=== PATIENT | male | born 1940 | race Caucasian/White ===

== ENCOUNTER 2017-07-03 08:04 | Emergency (ER) | payer BC, MEDICARE ==
--- NOTE | 2017-07-03 08:46 | XR ---
EXAMINATION TYPE: XR chest 2V DATE OF EXAM: 07/03/2017 HISTORY: Cough and congestion. REFERENCE: NONE. FINDINGS: The heart is upper limits of normal in size. The lungs are clear. Pleural spaces are clear. IMPRESSION: BORDERLINE CARDIOMEGALY.
--- NOTE | 2017-07-03 09:06 | ED ---
URI HPI - General Source: patient Mode of arrival: ambulatory Limitations: no limitations <Florian Conrad - Last Filed: 07/03/17 09:05> <Cady Deluca - Last Filed: 07/03/17 09:20> - General Chief Complaint: Upper Respiratory Infection Stated Complaint: Flu Time Seen by Provider: 07/03/17 08:16 - History of Present Illness Initial Comments: 77 year-old male patient presents to the emergency department today for evaluation of cough and chest congestion. Patient states that approximately one week ago he developed what he believed with influenza. He states that he had nasal congestion, cough, and fevers. He states that the fevers and nasal congestion have resolved however the cough has persisted. He states that his cough is worse at night making it difficult for him to sleep. He denies any sputum production. He denies any shortness of breath. He denies any current fevers. Patient denies any recent rash, chest pain, abdominal pain, nausea, vomiting, diarrhea, constipation, back pain, numbness, tingling, dizziness, weakness, hematuria, dysuria, urinary urgency, urinary frequency, headache, visual changes, or any other complaints. (Cady Deluca) - Related Data Previous Rx's Medication Instructions Recorded Guaifenesin/Pseudoephedrne HCl 1 each PO BID #10 tab.er.12h 07/03/17 [Mucinex D ER 1,200-120 mg Tab] Promethaz-Cod 6.25-10 mg/5 ml 5 ml PO HS PRN #25 ml 07/03/17 [Phenergan with Codeine] predniSONE 50 mg PO DAILY #5 tablet 07/03/17 Allergies Allergy/AdvReac Type Severity Reaction Status Date / Time No Known Allergies Allergy Verified 07/03/17 08:11 Review of Systems ROS Other: All systems not noted in ROS Statement are negative. <Florian Conrad - Last Filed: 07/03/17 09:05> ROS Other: All systems not noted in ROS Statement are negative. <Cady Deluca - Last Filed: 07/03/17 09:20> ROS Statement: Those systems with pertinent positive or pertinent negative responses have been documented in the HPI. Past Medical History Past Medical History: Hyperlipidemia, Hypertension History of Any Multi-Drug Resistant Organisms: None Reported Past Surgical History: Hernia Repair Past Psychological History: No Psychological Hx Reported Smoking Status: Former smoker Past Alcohol Use History: None Reported Past Drug Use History: None Reported <Florian Conrad - Last Filed: 07/03/17 09:05> General Exam Limitations: no limitations <Florian Conrad - Last Filed: 07/03/17 09:05> General appearance: alert, in no apparent distress, other (Physical well- developed, well-nourished adult male patient in no acute distress. Vital signs upon presentation were temperature 98.7F, pulse 74, respirations 20, blood pressure 152/84, pulse ox 96% on room air.) Eye exam: Present: normal appearance, PERRL, EOMI. Absent: scleral icterus, conjunctival injection, periorbital swelling ENT exam: Present: normal exam, normal oropharynx, mucous membranes moist, TM's normal bilaterally Neck exam: Present: normal inspection. Absent: tenderness, meningismus, lymphadenopathy Respiratory exam: Present: normal lung sounds bilaterally, other (Even nonlabored respirations noted.). Absent: respiratory distress, wheezes, rales, rhonchi, stridor, accessory muscle use Cardiovascular Exam: Present: regular rate, normal rhythm, normal heart sounds. Absent: systolic murmur, diastolic murmur, rubs, gallop, clicks GI/Abdominal exam: Present: soft, normal bowel sounds. Absent: distended, tenderness, guarding, rebound, rigid Neurological exam: Present: alert, oriented X3, CN II-XII intact Psychiatric exam: Present: normal affect, normal mood Skin exam: Present: warm, dry, intact, normal color. Absent: rash <Cady Deluca M - Last Filed: 07/03/17 09:20> Course <Florian Conrad - Last Filed: 07/03/17 09:05> <Cady Deluca M - Last Filed: 07/03/17 09:20> Vital Signs 07/03/17 08:09 Temperature 98.7 F Pulse Rate 74 Respiratory 20 Rate Blood Pressure 152/84 O2 Sat by Pulse 96 Oximetry - Reevaluation(s) Reevaluation #1: 07/03/17 09:05 I did personally do a [id number] evaluation of this patient and did discuss the findings with him. His lung sounds are clear cardiac evaluation was unremarkable. I did review his x-ray which shows no evidence of acute infiltrate. Patient has had a persistent cough likely a viral bronchitis. I do agree with the assessment and plan. ([place]) Medical Decision Making <Florian Conrad - Last Filed: 07/03/17 09:05> - Radiology Data Radiology results: report reviewed, image reviewed <Cady Deluca - Last Filed: 07/03/17 09:20> - Medical Decision Making 77 year-old male patient presented to the emergency department today for complaints of cough and congestion. Physical examination is unremarkable. Lungs are clear to auscultation with good air movement. Patient denies any shortness of breath. His respirations are even and unlabored. He is able to speak full sentences without difficulty. Chest x-ray was obtained and did showed no acute cardiopulmonary process, however did reveal borderline cardiomegaly. There is no evidence of pneumonia. His symptoms are consistent with an acute viral bronchitis. Patient will be discharged home with a prescription for prednisone. He'll be given up her prescription for Mucinex and Phenergan with codeine as well. He is instructed to use a cough medication at nighttime to help him sleep. He is instructed to follow-up with his primary care physician for recheck in 1-2 days. He is instructed to return here immediately for any new, worsening, or concerning symptoms. He verbalizes understanding and agrees with this plan. (Cady Deluca) - Radiology Data Two-view x-ray of the chest shows a heart is upper limits of normal in size. The lungs are clear. Pleural spaces are clear. Impression by Dr. Henry shows borderline cardiomegaly. (Cady Deluca) Disposition <Florian Conrad - Last Filed: 07/03/17 09:05> Time of Disposition: :13 <Cady Deluca - Last Filed: 07/03/17 09:20> Clinical Impression: Acute bronchitis Disposition: HOME SELF-CARE Condition: Good Instructions: Acute Bronchitis (ED) Additional Instructions: Take medications as directed. Follow-up with your primary care physician for recheck in 1-2 days. Return here immediately for any new, worsening, or concerning symptoms. Prescriptions: Guaifenesin/Pseudoephedrne HCl [Mucinex D ER 1,200-120 mg Tab] 1 each PO BID # 10 tab.er.12h predniSONE 50 mg PO DAILY #5 tablet Promethaz-Cod 6.25-10 mg/5 ml [Phenergan with Codeine] 5 ml PO HS PRN #25 ml PRN Reason: Cough Referrals: Nguyễn Gray DO [Primary Care Provider] - 1-2 days
[2017-07-03 09:27] VITALS: BP 136/72; PULSE 82; RESP 18; TEMP 98.5
== END 2017-07-03 09:25 | disposition home or self-care (01) ==
LOC: EC 08:04
DX: J20.9 Acute bronchitis, unspecified (principal); Z87.891 Personal history of nicotine dependence
CPT/HCPCS: 71046; 99283

== ENCOUNTER 2018-06-12 09:02 | Emergency (ER) | payer MEDICARE ==
[2018-06-12 09:23] VITALS: BP 159/85; PULSE 80; RESP 18; TEMP 97.9
--- NOTE | 2018-06-12 10:03 | ED ---
General Adult HPI - General Chief complaint: Skin/Abscess/Foreign Body Stated complaint: CYST ON BACK Time Seen by Provider: 06/12/18 09:30 Source: patient, RN notes reviewed, old records reviewed Mode of arrival: ambulatory Limitations: no limitations - History of Present Illness Initial comments: 78-year-old male presents for reevaluation of abscess to the middle of his back. Patient has had symptoms of erythema, swelling, and drainage for the past several weeks, he did have this abscess drained at an outpatient surgical Center approximately one week ago. He has completed a course of antibiotics. He has persistent pain and swelling with some minimal drainage in this area. He states he previously had excision of sebaceous cyst which was infected. He states this was not excised as well as I&D. Denies fever or chills, denies systemic symptoms. - Related Data Previous Rx's Medication Instructions Recorded Guaifenesin/Pseudoephedrne HCl 1 each PO BID #10 tab.er.12h 07/03/17 [Mucinex D ER 1,200-120 mg Tab] Promethaz-Cod 6.25-10 mg/5 ml 5 ml PO HS PRN #25 ml 07/03/17 [Phenergan with Codeine] predniSONE 50 mg PO DAILY #5 tablet 07/03/17 Cephalexin [Keflex] 500 mg PO Q8HR #30 cap 06/12/18 Sulfamethox-Tmp 800-160Mg [Bactrim 1 tab PO Q12HR #28 tab 06/12/18 DS 800-160 mg] Allergies Allergy/AdvReac Type Severity Reaction Status Date / Time No Known Allergies Allergy Verified 06/12/18 09:19 Review of Systems ROS Statement: Those systems with pertinent positive or pertinent negative responses have been documented in the HPI. ROS Other: All systems not noted in ROS Statement are negative. Past Medical History Past Medical History: Hyperlipidemia, Hypertension History of Any Multi-Drug Resistant Organisms: None Reported Past Surgical History: Hernia Repair Past Psychological History: No Psychological Hx Reported Smoking Status: Former smoker Past Alcohol Use History: Occasional Past Drug Use History: None Reported General Exam Limitations: no limitations General appearance: alert, in no apparent distress Head exam: Present: atraumatic, normocephalic Eye exam: Present: normal appearance, PERRL ENT exam: Present: normal exam Neck exam: Present: normal inspection. Absent: tenderness, meningismus Respiratory exam: Present: normal lung sounds bilaterally. Absent: respiratory distress, wheezes GI/Abdominal exam: Present: soft. Absent: distended, tenderness Extremities exam: Present: normal inspection. Absent: normal capillary refill, pedal edema Back exam: Present: other (70 x 3 cm area of cellulitis with minimal central fluctuance consistent with abscess. This is freely draining at the incision site ) Neurological exam: Present: alert, oriented X3 Course Vital Signs 06/12/18 09:20 Temperature 97.9 F Pulse Rate 80 Respiratory 18 Rate Blood Pressure 159/85 O2 Sat by Pulse 97 Oximetry Medical Decision Making - Medical Decision Making 78-year-old male with abscess to his mid back. This was drained by general surgery approximately one week ago. It is continuing to drain, there is some surrounding cellulitis and purulent drainage. Patient will be restarted on antibiotics. Patient will follow-up with dermatology as he has previously required excision of sebaceous cyst. This is likely infected sebaceous cyst. Disposition Clinical Impression: Abscess Disposition: HOME SELF-CARE Condition: Good Instructions: Abscess (ED) Prescriptions: Cephalexin [Keflex] 500 mg PO Q8HR #30 cap Sulfamethox-Tmp 800-160Mg [Bactrim DS 800-160 mg] 1 tab PO Q12HR #28 tab Is patient prescribed a controlled substance at d/c from ED?: No Referrals: Nguyễn Gray DO [Primary Care Provider] - 1-2 days Jake Leonard MD [STAFF PHYSICIAN] - 1-2 days Time of Disposition: 10:02
== END 2018-06-12 10:34 | disposition home or self-care (01) ==
LOC: EC 09:02
DX: L02.212 Cutaneous abscess of back [any part, except buttock and flank] (principal); Z87.891 Personal history of nicotine dependence
CPT/HCPCS: 99283

== ENCOUNTER 2021-05-24 04:23 | Inpatient (IN) | payer MEDICARE ==
--- NOTE | 2021-05-24 04:41 | ED ---
Chest Pain HPI - General Chief Complaint: Chest Pain Stated Complaint: Chest Pain Time Seen by Provider: 05/24/21 04:38 Source: patient, family, RN notes reviewed, old records reviewed Mode of arrival: ambulatory Limitations: no limitations - History of Present Illness MD Complaint: chest pain - Related Data Previous Rx's Medication Instructions Recorded Guaifenesin/Pseudoephedrne HCl 1 each PO BID #10 tab.er.12h 07/03/17 [Mucinex D ER 1,200-120 mg Tab] Promethaz-Cod 6.25-10 mg/5 ml 5 ml PO HS PRN #25 ml 07/03/17 [Phenergan with Codeine] predniSONE 50 mg PO DAILY #5 tablet 07/03/17 Cephalexin [Keflex] 500 mg PO Q8HR #30 cap 06/12/18 Sulfamethox-Tmp 800-160Mg [Bactrim 1 tab PO Q12HR #28 tab 06/12/18 DS 800-160 mg] Allergies Allergy/AdvReac Type Severity Reaction Status Date / Time Sulfa (Sulfonamide Allergy Rash/Hives Verified 05/24/21 04:29 Antibiotics) Review of Systems ROS Statement: Those systems with pertinent positive or pertinent negative responses have been documented in the HPI. ROS Other: All systems not noted in ROS Statement are negative. EKG Findings - EKG Comments: EKG Findings:: EKG shows atrial fibrillation with RVR 125 QRS 96 QTc 461 Past Medical History Past Medical History: Hyperlipidemia, Hypertension History of Any Multi-Drug Resistant Organisms: None Reported Past Surgical History: Hernia Repair Past Psychological History: No Psychological Hx Reported Smoking Status: Never smoker Past Alcohol Use History: Occasional Past Drug Use History: None Reported General Exam Limitations: no limitations General appearance: alert, in no apparent distress, anxious Head exam: Present: atraumatic, normocephalic, normal inspection Eye exam: Present: normal appearance, PERRL, EOMI. Absent: scleral icterus, conjunctival injection, periorbital swelling ENT exam: Present: normal exam, mucous membranes moist Neck exam: Present: normal inspection. Absent: tenderness, meningismus, lymphadenopathy Respiratory exam: Present: normal lung sounds bilaterally. Absent: respiratory distress, wheezes, rales, rhonchi, stridor Cardiovascular Exam: Present: tachycardia, irregular rhythm, normal heart sounds. Absent: systolic murmur, diastolic murmur, rubs, gallop, clicks GI/Abdominal exam: Present: soft, normal bowel sounds. Absent: distended, tenderness, guarding, rebound, rigid Extremities exam: Present: normal inspection, full ROM, normal capillary refill. Absent: tenderness, pedal edema, joint swelling, calf tenderness Back exam: Present: normal inspection Neurological exam: Present: alert, oriented X3, CN II-XII intact Psychiatric exam: Present: normal affect, normal mood Skin exam: Present: warm, dry, intact, normal color. Absent: rash Course Vital Signs 05/24/21 04:24 Temperature 97.9 F Pulse Rate 111 H Respiratory 20 Rate Blood Pressure 136/99 O2 Sat by Pulse 98 Oximetry Critical Care Time Critical Care Time: Yes Total Critical Care Time: 31 Disposition Clinical Impression: Atypical chest pain, Chest pain, Atrial fibrillation with RVR, New onset atrial fibrillation Disposition: ADMITTED IP TO THIS HOSP Condition: Fair Is patient prescribed a controlled substance at d/c from ED?: No Referrals: Nguyễn Gray DO [Primary Care Provider] - 1-2 days
[2021-05-24] MEDS ORDERED: DILTIAZEM DRIP BOLUS FROM BAG 1 MG SOLN IV ONE (04:48)
[2021-05-24] MEDS ORDERED: DILTIAZEM 125 MG in SODIUM CHLORIDE 0.9% 100 ML IV SCH (05:00)
[2021-05-24] MEDS ORDERED: MORPHINE SULFATE 4 MG/ML SYRINGE IVP PRN (05:23)
[2021-05-24] MEDS ORDERED: MORPHINE SULFATE 4 MG/ML SYRINGE IVP STA (05:23)
[2021-05-24 05:27] LABS: Basophils % (A) 0 %; Eosinophils # (A) 0.3 k/uL (0-0.7); Eosinophils % (A) 3 %; HCT 45.9 % (39.0-53.0); HGB 15.8 gm/dL (13.0-17.5); Lymphocytes # (A) 1.5 k/uL (1.0-4.8); Lymphocytes % (A) 15 %; MCH 32.4 pg (25.0-35.0); MCHC 34.4 g/dL (31.0-37.0); MCV 94.3 fL (80.0-100.0); Mean Platelet Volume 8.3; Monocytes # (A) 0.8 k/uL (0-1.0); Monocytes % (A) 7 %; Neutrophils # (A) 7.7 k/uL (1.3-7.7); Neutrophils % (A) 74 %; Platelet Count 250 k/uL (150-450); RBC 4.87 m/uL (4.30-5.90); WBC 10.5 k/uL (3.8-10.6)
[2021-05-24] MEDS ORDERED: NALOXONE 0.4 MG/ML 1 ML VIAL IV PRN (05:33)
[2021-05-24 05:38] LABS: Partial Thromboplastin Time 22.1 sec (22.0-30.0); Prothrombin Time 10.6 sec (9.0-12.0)
[2021-05-24 05:49] LABS: ALT 22 U/L (4-49); AST 26 U/L (17-59); African American GFR (CKD) >90 (>60 ml/min/1.73 sqM); Albumin 3.8 g/dL (3.5-5.0); Alkaline Phosphatase 54 U/L (38-126); Anion Gap 10 mmol/L; Blood Urea Nitrogen 32 mg/dL (9-20); Calcium 9.7 mg/dL (8.4-10.2); Carbon Dioxide 20 mmol/L (22-30); Chloride 106 mmol/L (98-107); Glucose 285 mg/dL (74-99); Lipase 540 U/L (23-300); Magnesium 1.8 mg/dL (1.6-2.3); Non-African American GFR(CKD) 86 (>60 ml/min/1.73 sqM); Sodium 136 mmol/L (137-145); Total Bilirubin 0.8 mg/dL (0.2-1.3); Total Protein 6.8 g/dL (6.3-8.2)
--- NOTE | 2021-05-24 06:01 | XR ---
EXAMINATION TYPE: XR chest 2V DATE OF EXAM: 05/24/2021 COMPARISON: 07/03/2017 HISTORY: Chest pain TECHNIQUE: FINDINGS: There is no heart failure nor confluent pneumonic infiltrate. Heart is borderline enlarged. There are chest leads. There are no hilar masses. Costophrenic angles are fairly clear. Bony thorax is intact. IMPRESSION: No active cardiopulmonary disease. No change.
[2021-05-24] MEDS: SODIUM CHLORIDE 0.9% 1,000 ML IV SCH ×3 (08:55→20:59)
--- NOTE | 2021-05-24 11:42 | P.HPIM ---
History of Present Illness Patient is an 81-year-old male came in with the mild to moderate the chest pressure like sensation which started yesterday and today morning as well he took Tums which didn't help him because of which he came to ER and in ER. Patient is found to have atrial fibrillation with rapid ventricular rate patient doesn't have any fever chills is not septic is not dehydrated patient was started on Cardizem converted to sinus rhythm shortly after that cards was discontinued patient the will be started on metoprolol 25 twice a day. Echo cardiac exam is being obtained for cardiology will evaluate the patient. REVIEW OF SYSTEMS: CONSTITUTIONAL: No fever, no malaise, no fatigue. HEENT: No recent visual problems or hearing problems. Denied any sore throat. CARDIOVASCULAR: No orthopnea, PND, no palpitations, no syncope. PULMONARY: No shortness of breath, no cough, no hemoptysis. GASTROINTESTINAL: No diarrhea, no nausea, no vomiting, no abdominal pain. NEUROLOGICAL: No headaches, no weakness, no numbness. HEMATOLOGICAL: Denies any bleeding or petechiae. GENITOURINARY: Denies any burning micturition, frequency, or urgency. MUSCULOSKELETAL/RHEUMATOLOGICAL: Denies any joint pain, swelling, or any muscle pain. ENDOCRINE: Denies any polyuria or polydipsia. The rest of the 14-point review of systems is negative. PHYSICAL EXAMINATION: GENERAL: The patient is alert and oriented x3, not in any acute distress. Well developed, well nourished. HEENT: Pupils are round and equally reacting to light. EOMI. No scleral icterus. No conjunctival pallor. Normocephalic, atraumatic. No pharyngeal erythema. No thyromegaly. CARDIOVASCULAR: S1 and S2 present. No murmurs, rubs, or gallops. PULMONARY: Chest is clear to auscultation, no wheezing or crackles. ABDOMEN: Soft, nontender, nondistended, normoactive bowel sounds. No palpable organomegaly. MUSCULOSKELETAL: No joint swelling or deformity. EXTREMITIES: No cyanosis, clubbing, or pedal edema. NEUROLOGICAL: Gross neurological examination did not reveal any focal deficits. SKIN: No rashes. Assessment and plan -Atrial fibrillation with rapid unclear rate: Presently converted to sinus rhythm patient probably has paroxysmal A. fib. Cardiology will evaluate the patient patient will be started on beta eva 25 mg twice a day patient was started on Eliquis will verify his insurance coverage. If cardiology clears him patient will be discharged later today patient wanted to go home today. Echocardiogram was ordered -Type 2 diabetes mellitus uncontrolled elevated blood sugars I do not have enough time to titrate his medications are leave that decision to the primary care physician -Hypertension: Patient will be switched to losartan 50 mg daily patient blood pressure is well controlled at this time --Hyperlipidemia: on statin . If patient will be discharged today if cleared by cardiology Past Medical History Past Medical History: Hyperlipidemia, Hypertension History of Any Multi-Drug Resistant Organisms: None Reported Past Surgical History: Hernia Repair Past Anesthesia/Blood Transfusion Reactions: No Reported Reaction Past Psychological History: No Psychological Hx Reported Smoking Status: Former smoker Past Alcohol Use History: Occasional Past Drug Use History: None Reported Medications and Allergies Home Medications Medication Instructions Recorded Confirmed Type Apixaban [Eliquis] 5 mg PO BID #60 tab 05/24/21 Rx Atorvastatin Calcium [Lipitor] 40 mg PO DAILY 05/24/21 05/24/21 History Cholecalciferol [Vitamin D3 (25 25 mcg PO DAILY 05/24/21 05/24/21 History Mcg = 1000 Iu)] Losartan [Cozaar] 50 mg PO DAILY #30 tab 05/24/21 Rx Metoprolol Tartrate [Lopressor] 25 mg PO BID #60 tab 05/24/21 Rx metFORMIN HCL ER [Glucophage XR] 500 mg PO DAILY 05/24/21 05/24/21 History Allergies Allergy/AdvReac Type Severity Reaction Status Date / Time Sulfa (Sulfonamide Allergy Rash/Hives Verified 05/24/21 09:34 Antibiotics) Physical Exam Vitals: Vital Signs Temp Pulse Pulse Resp BP BP Pulse Ox 05/24/21 11:02 97.6 F 90 16 156/76 95 05/24/21 08:00 80 16 123/70 95 05/24/21 06:21 75 16 123/70 95 05/24/21 04:24 97.9 F 111 H 20 136/99 98 Intake and Output 05/23/21 05/24/21 05/24/21 22:59 06:59 14:59 Intake Total 8.083 Balance 8.083 Intake: Intake, IV Titration 8.083 Amount Diltiazem 125 mg In 8.083 Sodium Chloride 0.9% 100 ml @ 5 MG/HR 5 mls/hr IV .Q24H PENDING SALE TO [facility] Rx#:[id number] Other: Weight 102.058 kg 102.058 kg Results CBC & Chem 7: 05/24/21 05:04 05/24/21 05:04 Labs: Abnormal Lab Results - Last 24 Hours (Table) 05/24/21 Range/Units 05:04 Sodium 136 L (137-145) mmol/L Carbon Dioxide 20 L (22-30) mmol/L BUN 32 H (9-20) mg/dL Glucose 285 H (74-99) mg/dL Lipase 540 H (23-300) U/L
--- NOTE | 2021-05-24 11:43 | P.DS ---
Providers Date of admission: 05/24/21 05:33 Attending physician: Lorena Casey Consults: 05/24/21 05:33 Consult Physician Routine Consulting Provider: David Fleming Consult Reason/Comments: afib Do you want consulting provider notified?: Yes Primary care physician: Nguyễn Gray [facility] Course: Please refer to [facility] for further details Patient Condition at Discharge: Fair Plan - Discharge Summary Discharge Rx Participant: Yes New Discharge Prescriptions: New Apixaban [Eliquis] 5 mg PO BID #60 tab Metoprolol Tartrate [Lopressor] 25 mg PO BID #60 tab Losartan [Cozaar] 50 mg PO DAILY #30 tab Discontinued amLODIPine BESYLATE/BENAZEPRIL [Lotrel 5-40 MG] 1 cap PO DAILY No Action metFORMIN HCL ER [Glucophage XR] 500 mg PO DAILY Atorvastatin Calcium [Lipitor] 40 mg PO DAILY Cholecalciferol [Vitamin D3 (25 Mcg = 1000 Iu)] 25 mcg PO DAILY Discharge Medication List Apixaban [Eliquis] 5 mg PO BID #60 tab 05/24/21 [Rx] Atorvastatin Calcium [Lipitor] 40 mg PO DAILY 05/24/21 [History] Cholecalciferol [Vitamin D3 (25 Mcg = 1000 Iu)] 25 mcg PO DAILY 05/24/21 [History] Losartan [Cozaar] 50 mg PO DAILY #30 tab 05/24/21 [Rx] Metoprolol Tartrate [Lopressor] 25 mg PO BID #60 tab 05/24/21 [Rx] metFORMIN HCL ER [Glucophage XR] 500 mg PO DAILY 05/24/21 [History] Follow up Appointment(s)/Referral(s): Nguyễn Gray DO [Primary Care Provider] - 3 Days Discharge Disposition: HOME SELF-CARE
[2021-05-24] MEDS ORDERED: LOSARTAN 25 MG TAB PO STA (12:46)
[2021-05-24] MEDS: METOPROLOL TARTRATE 25 MG TAB PO SCH ×2 (13:12→20:57)
[2021-05-24] MEDS: LOSARTAN 50 MG TAB PO SCH (13:13)
--- NOTE | 2021-05-24 14:45 | CONS ---
CONSULTATION CHIEF COMPLAINT: Chest pain. Michael is an 81-year-old gentleman with history of qzc-hqahrqa-swegckuvy diabetes, hypertension and dyslipidemia who presented to [facility] with episodes of chest discomfort for the last two days. He describes it as a precordial chest pressure that radiated to his back. He was found to be in atrial fibrillation with poorly controlled ventricular rate with a heart rate of 130 beats per minute and subsequently converted to sinus rhythm on intravenous Cardizem. At the time of my evaluation, he is [id number], hemodynamically stable and in no apparent distress. He has had one set of troponin that is negative. Coronavirus is negative. EKG showed atrial fibrillation with nonspecific ST-T wave changes. I do not have a post- conversion EKG. Given the paroxysmal atrial fibrillation, patient will need and would benefit from long-term anticoagulation. I am concerned with his chest discomfort. I want to get at least another troponin and rule him out for myocardial infarction, and obtain a 2D echo to assess his LV function and wall motion. If LV function is good, wall motion is normal, he does not have further episodes of chest pain, would be able to discharge him home tomorrow and arrange for an outpatient stress test on him. If he has further episodes of chest discomfort, I will consider cardiac catheterization. PAST MEDICAL HISTORY: Significant for nzu-dgjomax-leurbarzu diabetes and hypertension. MEDICATIONS: Medications include metformin, Lipitor, Lopressor, Cozaar and Eliquis. ALLERGIC: SULFA. FAMILY HISTORY: Negative for premature coronary artery disease. SOCIAL HISTORY: Negative for current smoking, EtOH abuse or drug abuse. REVIEW OF SYSTEMS: HEENT is unremarkable. CARDIAC: As described above. RESPIRATORY: Negative. GI: Negative. GENITOURINARY: Negative. ALLERGY/IMMUNOLOGY: Negative. SKIN: Negative. MUSCULOSKELETAL: Negative. ENDOCRINE: Negative. DERMATOLOGY: Negative. CONSTITUTIONAL: Negative. ONCOLOGICAL: Negative. CASH PERSON: Negative. Rest of the system review is not relevant. PHYSICAL EXAMINATION: Patient is comfortable at rest. Vital signs are stable. There is no jugular venous distention. Carotid upstroke is normal. There is no bruit. Chest exam reveals good air entry bilaterally. Heart exam reveals first and second heart sounds. No gallop. No murmur. No rub. Abdomen is soft, non-tender. Examination of extremities did not reveal any edema. Peripheral pulses are felt. CASH PERSON exam did not reveal focal neurological deficits. EKG is as described above. Labs have been reviewed. ASSESSMENT: 1. Paroxysmal atrial fibrillation. 2. Precordial chest pain. 3. Hypertension. 4. Oun-lnqrbkx-kvffhayof diabetes mellitus. PLAN: I will check a D-dimer, another set of troponin and echocardiogram, start him on beta blockers and Eliquis. Hopefully home tomorrow. MMODL / IJN: [id number] /
[2021-05-24] MEDS: APIXABAN 5 MG TAB PO SCH (20:57)
[2021-05-25] MEDS: SODIUM CHLORIDE 0.9% 1,000 ML IV SCH (05:10)
[2021-05-25] MEDS: APIXABAN 5 MG TAB PO SCH ×2 (08:20→11:32)
[2021-05-25] MEDS: METOPROLOL TARTRATE 25 MG TAB PO SCH ×2 (08:21→11:32)
[2021-05-25] MEDS: LOSARTAN 50 MG TAB PO SCH (08:21)
[2021-05-25 08:23] VITALS: BP 120/61; PULSE 80; RESP 16; TEMP 98
[2021-05-25 08:38] LABS: Basophils # (A) 0.1 k/uL (0-0.2); Basophils % (A) 1 %; Eosinophils # (A) 0.2 k/uL (0-0.7); Eosinophils % (A) 3 %; HGB 14.6 gm/dL (13.0-17.5); Lymphocytes # (A) 1.6 k/uL (1.0-4.8); Lymphocytes % (A) 21 %; MCH 32.5 pg (25.0-35.0); MCHC 33.9 g/dL (31.0-37.0); MCV 95.9 fL (80.0-100.0); Monocytes # (A) 0.6 k/uL (0-1.0); Monocytes % (A) 9 %; Neutrophils # (A) 4.7 k/uL (1.3-7.7); Neutrophils % (A) 64 %; Platelet Count 240 k/uL (150-450); RBC 4.48 m/uL (4.30-5.90); WBC 7.3 k/uL (3.8-10.6)
[2021-05-25 08:53] LABS: ALT 19 U/L (4-49); AST 21 U/L (17-59); African American GFR (CKD) >90 (>60 ml/min/1.73 sqM); Albumin 3.8 g/dL (3.5-5.0); Alkaline Phosphatase 48 U/L (38-126); Anion Gap 8 mmol/L; Blood Urea Nitrogen 26 mg/dL (9-20); Calcium 9.2 mg/dL (8.4-10.2); Carbon Dioxide 25 mmol/L (22-30); Chloride 103 mmol/L (98-107); Glucose 288 mg/dL (74-99); Non-African American GFR(CKD) >90 (>60 ml/min/1.73 sqM); Sodium 136 mmol/L (137-145); Total Bilirubin 1.1 mg/dL (0.2-1.3); Total Protein 6.8 g/dL (6.3-8.2)
--- NOTE | 2021-05-25 11:00 | P.DS ---
Providers Date of admission: 05/24/21 05:33 Attending physician: Lorena Casey Consults: 05/24/21 05:33 Consult Physician Routine Consulting Provider: David Fleming Consult Reason/Comments: afib Do you want consulting provider notified?: Yes Primary care physician: Nguyễn Gray [facility] Course: Patient is an 81-year-old male came in with the mild to moderate the chest pressure like sensation which started yesterday and today morning as well he took Tums which didn't help him because of which he came to ER and in ER. Patient is found to have atrial fibrillation with rapid ventricular rate patient doesn't have any fever chills is not septic is not dehydrated patient was started on Cardizem converted to sinus rhythm shortly after that cards was discontinued patient the will be started on metoprolol 25 twice a day. Echo cardiac exam is being obtained for cardiology will evaluate the patient. 05/25/2021 Patient is clinically doing well cleared by cardiology patient is rate controlled at this time patient will be discharged on 25 mg twice a day of metoprolol along with the anticoagulation on Eliquis. Echocardiogram report is still pending. Patient clinically doesn't appear to be in heart failure. PHYSICAL EXAMINATION: GENERAL: The patient is alert and oriented x3, not in any acute distress. Well developed, well nourished. HEENT: Pupils are round and equally reacting to light. EOMI. No scleral icterus. No conjunctival pallor. Normocephalic, atraumatic. No pharyngeal erythema. No thyromegaly. CARDIOVASCULAR: S1 and S2 present. No murmurs, rubs, or gallops. PULMONARY: Chest is clear to auscultation, no wheezing or crackles. ABDOMEN: Soft, nontender, nondistended, normoactive bowel sounds. No palpable organomegaly. MUSCULOSKELETAL: No joint swelling or deformity. EXTREMITIES: No cyanosis, clubbing, or pedal edema. NEUROLOGICAL: Gross neurological examination did not reveal any focal deficits. SKIN: No rashes. Assessment and plan -Atrial fibrillation with rapid unclear rate: Presently converted to sinus rhythm patient probably has paroxysmal A. fib. Patient is on on beta eva 25 mg twice a day and Eliquis. -Type 2 diabetes mellitus uncontrolled elevated blood sugars I do not have enough time to titrate his medications are leave that decision to the primary care physician -Hypertension: Patient will be switched to losartan 50 mg daily patient blood pressure is well controlled at this time --Hyperlipidemia: on statin Patient Condition at Discharge: Fair Plan - Discharge Summary Discharge Rx Participant: Yes New Discharge Prescriptions: New Apixaban [Eliquis] 5 mg PO BID #60 tab Metoprolol Tartrate [Lopressor] 25 mg PO BID #60 tab Losartan [Cozaar] 50 mg PO DAILY #30 tab Discontinued amLODIPine BESYLATE/BENAZEPRIL [Lotrel 5-40 MG] 1 cap PO DAILY No Action metFORMIN HCL ER [Glucophage XR] 500 mg PO DAILY Atorvastatin Calcium [Lipitor] 40 mg PO DAILY Cholecalciferol [Vitamin D3 (25 Mcg = 1000 Iu)] 25 mcg PO DAILY Discharge Medication List Apixaban [Eliquis] 5 mg PO BID #60 tab 05/24/21 [Rx] Atorvastatin Calcium [Lipitor] 40 mg PO DAILY 05/24/21 [History] Cholecalciferol [Vitamin D3 (25 Mcg = 1000 Iu)] 25 mcg PO DAILY 05/24/21 [History] Losartan [Cozaar] 50 mg PO DAILY #30 tab 05/24/21 [Rx] Metoprolol Tartrate [Lopressor] 25 mg PO BID #60 tab 05/24/21 [Rx] metFORMIN HCL ER [Glucophage XR] 500 mg PO DAILY 05/24/21 [History] Follow up Appointment(s)/Referral(s): Nguyễn Gray DO [Primary Care Provider] - 3 Days Raf Boland MD [STAFF PHYSICIAN] - 1 Week Patient Instructions/Handouts: A-fib (Atrial Fibrillation) (DC) Discharge Disposition: HOME SELF-CARE
--- NOTE | 2021-05-25 11:55 | ECHOF ---
Referral Reason:A.Fib MEASUREMENTS -------- HEIGHT: 185.4 cm WEIGHT: 102.1 kg BP: 149/90 IVSd: 1.7 cm (0.6 - 1.1) LVIDd: 4.8 cm (3.9 - 5.3) LVPWd: 1.6 cm (0.6 - 1.1) IVSs: 2.5 cm LVIDs: 2.7 cm LVPWs: 1.8 cm LA Diam: 4.9 cm (2.7 - 3.8) MV E Rafat: 0.75 m/s MV DecT: 185 ms MV A Rafat: 0.88 m/s MV E/A Ratio: 0.85 FINDINGS -------- This was a technically difficult study with suboptimal views. The left ventricular size is normal. There is moderate concentric left ventricular hypertrophy. O verall left ventricular systolic function is normal with, an EF between 55 - 60 %. The RV was not well visualized. The left atrium is moderately dilated. The right atrium was not well visualized. 3.0mg of Lumason was utilized for enhancement of images Interatrial and interventricular septum intact. There is no evidence of aortic regurgitation. There is no evidence of aortic stenosis. No mitral regurgitation. Mild tricuspid regurgitation present. There is no evidence of pulmonary hypertension. The right v entricular systolic pressure, as measured by Doppler, is {RVSP}. There is no pulmonic regurgitation present. The aortic root size is normal. IVC Not well visulized. There is no pericardial effusion. CONCLUSIONS -------- 1. The left ventricular size is normal. 2. There is moderate concentric left ventricular hypertrophy. 3. Overall left ventricular systolic function is normal with, an EF between 55 - 60 %. 4. The left atrium is moderately dilated. 5. Mild tricuspid regurgitation present. SHELLFISH SORTER: Milana Vela RD
== END 2021-05-25 11:52 | disposition home or self-care (01) | DRG 310 ==
LOC: EC 04:23 → 3SCARD 05:33
PROVIDERS: ADMIT Hospitalist; ATTEND Hospitalist
DX: I48.0 Paroxysmal atrial fibrillation (principal); E11.65 Type 2 diabetes mellitus with hyperglycemia; Z20.822 Contact with and (suspected) exposure to COVID-19; E78.5 Hyperlipidemia, unspecified; I10 Essential (primary) hypertension; Z79.84 Long term (current) use of oral hypoglycemic drugs; Z79.899 Other long term (current) drug therapy; Z87.891 Personal history of nicotine dependence; Z87.19 Personal history of other diseases of the digestive system; Z98.890 Other specified postprocedural states; Z88.2 Allergy status to sulfonamides
CPT/HCPCS: 36415; 71046; 80053; 83690; 83735; 83880; 84484; 85025; 85379; 85610; 85730; 87635; 93005; 93306; 96374; 96375; 99291

== ENCOUNTER 2022-04-27 06:08 | Day surgery (SDC) | payer MEDICARE ==
[2022-04-24 09:24] VITALS: BMI 30.3
[~2022-04-27 06:08] MED LIST: ACETAMINOPHEN TAB 500 MG TAB PO PRN; HEPARIN SODIUM,PORCINE/PF 5,000 UNIT/0.5 ML SYRINGE SQ PRN; metroNIDAZOLE-NS PMX 500 MG in SALINE 1 100ML.BAG IVPB PRN
[2022-04-27] MEDS ORDERED: LACTATED RINGERS 1,000 ML IV ONE ×2 (06:54→08:39)
[2022-04-27] MEDS ORDERED: ONDANSETRON 4 MG/2 ML VIAL ONE (06:55)
[2022-04-27 07:13] LABS: Glucose,Whole Blood 267 mg/dL (70-110)
[2022-04-27] MEDS ORDERED: INSULIN ASPART (NovoLOG) 100 UNIT/ML VIAL SQ ONE (07:17)
[2022-04-27] MEDS ORDERED: DEXAMETHASONE SOD PHOSPHATE 4 MG/ML 1 ML VIAL IV ONE (07:29)
[2022-04-27] MEDS ORDERED: MIDAZOLAM 2 MG/2 ML VIAL IV PRN (07:29)
[2022-04-27] MEDS ORDERED: LACTATED RINGERS 1,000 ML IV SCH (07:29)
[2022-04-27] MEDS ORDERED: HYDROmorphone 0.5 MG/0.5 ML SYRINGE IVP PRN (07:29)
[2022-04-27] MEDS ORDERED: ONDANSETRON 4 MG/2 ML VIAL IVP ONE (07:29)
[2022-04-27] MEDS ORDERED: SUCCINYLCHOLINE CHLORIDE 200 MG/10 ML VIAL IV ONE (07:30)
[2022-04-27] MEDS ORDERED: fentaNYL (PF) 50 MCG/ML 2 ML AMP ONE (07:30)
[2022-04-27] MEDS ORDERED: PROPOFOL 10 MG/ML 20 ML VIAL IV ONE (07:30)
[2022-04-27] MEDS ORDERED: LIDOCAINE 2% INJ 20 MG/ML (2 ML VIAL) ONE (07:30)
[2022-04-27] MEDS ORDERED: MIDAZOLAM 2 MG/2 ML VIAL ONE (07:30)
[2022-04-27] MEDS ORDERED: BUPIVACAINE (PF) 0.25% 30 ML VIAL SQ ONE ×2 (07:51→08:02)
[2022-04-27] MEDS ORDERED: ACETAMINOPHEN TAB 325 MG TAB PO PRN (08:24)
[2022-04-27] MEDS ORDERED: NALOXONE 0.4 MG/ML 1 ML VIAL IV PRN (08:24)
[2022-04-27] MEDS ORDERED: traMADol 50 MG TAB PO PRN (08:24)
--- NOTE | 2022-04-27 08:27 | P.OP ---
Date of Procedure: 04/27/22 Procedure(s) Performed: PREOPERATIVE DIAGNOSIS: Lower back cyst POSTOPERATIVE DIAGNOSIS: Same PROCEDURE: Excision lower back cystic lesion SURGEON: Britney EBL: Minimal ANESTHESIA: General COMPLICATIONS: None OPERATIVE PROCEDURE: Patient was placed prone on the operating table after general anesthesia was achieved. The gluteal crease was prepped and draped in usual sterile fashion after the patient was placed in the prone jackknife position. The patient had a large cystic lesion in the lower midline just above and at the apex of the gluteal crease. There were no skin sinuses present. An elliptical incision was made overlying the cyst removing a portion of skin. Excision 7 x 3.5 cm. Saphenous tissues divided using electrocautery. Mass was fully excised at that time. No tracking was seen. Flaps were raised laterally beneath the skin surface. Subcutaneous tissues closed using 20 and 3-0 Vicryl sutures. Skin was then closed using a running 3-0 Monocryl suture. Marcaine solution plain was utilized as local anesthesia. Skin glue was used along the length of the skin closure. A sterile dressing was applied at that time. DISPOSITION: Stable to recovery room
[2022-04-27 08:34] VITALS: TEMP 97.9
[2022-04-27 08:53] LABS: Glucose,Whole Blood 275 mg/dL (70-110)
[2022-04-27 09:22] VITALS: RESP 15
[2022-04-27 09:34] VITALS: BP 128/72; PULSE 67
== END 2022-04-27 09:45 | disposition home or self-care (01) ==
LOC: OR 06:08
PROVIDERS: ATTEND Surgery
DX: L72.0 Epidermal cyst (principal); I10 Essential (primary) hypertension; E78.5 Hyperlipidemia, unspecified; Z88.2 Allergy status to sulfonamides; Z79.899 Other long term (current) drug therapy
CPT/HCPCS: 88304; 11406; J2250; J0330; J0690; J2405; J3010; J2704; J1644; J2001

== ENCOUNTER 2022-10-19 23:02 | Emergency (ER) | payer MEDICARE ==
[2022-10-19 23:28] VITALS: TEMP 97.2
--- NOTE | 2022-10-19 23:35 | ED ---
General Adult HPI - General Chief complaint: Urogenital Stated complaint: URINARY RETENTION Time Seen by Provider: 10/19/22 23:12 Source: patient Mode of arrival: EMS Limitations: no limitations - History of Present Illness Initial comments: Dictation was produced using [employer] dictation software. please excuse any grammatical, word or spelling errors. Chief Complaint: 82-year-old male presents emergency department for urinary retention History of Present Illness: Patient is an 82-year-old male presents emergency department for urinary retention. Patient had a cystoscopy with removal of polyps several days ago. He had his follow-up appointment to have his Wooten catheter removed after the procedure. Wooten catheter was removed. He was at home. He went to try to urinate however was unable to do so for the last 4-5 hours. Patient called EMS and is brought to the ER. The ROS documented in this emergency department record has been reviewed and confirmed by me. Those systems with pertinent positive or negative responses have been documented in the HPI. All other systems are other negative and/or noncontributory. - Related Data Home Medications Medication Instructions Recorded Confirmed Atorvastatin Calcium [Lipitor] 40 mg PO Q48H 05/24/21 04/27/22 Cinnamon Bark [Cinnamon] 2,000 mg PO QAM 04/24/22 04/27/22 Tetrahydrozoline 0.05% Ophth 1 drop BOTH EYES QAM 04/24/22 04/27/22 [Visine Eye Drops] Turmeric (Unknown Dose) 1 tab PO DAILY PRN 04/24/22 04/27/22 Allergies Allergy/AdvReac Type Severity Reaction Status Date / Time Sulfa (Sulfonamide Allergy Rash/Hives Verified 10/19/22 23:21 Antibiotics) Review of Systems ROS Statement: Those systems with pertinent positive or pertinent negative responses have been documented in the HPI. ROS Other: All systems not noted in ROS Statement are negative. Past Medical History Past Medical History: Diabetes Mellitus, Hyperlipidemia, Hypertension, Prostate Disorder Additional Past Medical History / Comment(s): No medications currently for BP or Diabetes. Bladder CA september/2022 History of Any Multi-Drug Resistant Organisms: None Reported Past Surgical History: Hernia Repair Additional Past Surgical History / Comment(s): Cysts removed from chest X2 and from back X3. Laser eye surgery. Past Anesthesia/Blood Transfusion Reactions: No Reported Reaction Past Psychological History: No Psychological Hx Reported Smoking Status: Former smoker Past Alcohol Use History: Daily Past Drug Use History: None Reported - Past Family History Brother(s) Family Medical History: Cancer Additional Family Medical History / Comment(s): Esophageal cancer. Mother Family Medical History: Cancer Additional Family Medical History / Comment(s): Breast cancer. General Exam - General Exam Comments Initial Comments: PHYSICAL EXAM: General Impression: Alert and oriented x3, not in acute distress HEENT: Normocephalic atraumatic, extra-ocular movements intact, pupils equal and reactive to light bilaterally, mucous membranes moist. Cardiovascular: Heart regular rate and rhythm Chest: Able to complete full sentences, no retractions, no tachypnea Abdomen: abdomen soft, non-tender,suprapubic fullness, non-distended, no organomegaly Musculoskeletal: Pulses present and equal in all extremities, no peripheral edema Motor: no focal deficits noted Neurological: CN II-XII grossly intact, no focal motor or sensory deficits noted Skin: Intact with no visualized rashes Psych: Normal affect and mood Limitations: no limitations Course Vital Signs 10/19/22 23:21 Temperature 97.2 F L Pulse Rate 72 Respiratory 16 Rate Blood Pressure 196/92 O2 Sat by Pulse 95 Oximetry - Reevaluation(s) Reevaluation #1: 10/19/22 23:34 Wooten catheter was placed by nurse with 700 mL of bloody urine removed. Patient reported significant resolution after Wooten catheter was placed. Medical Decision Making - Medical Decision Making Was pt. sent in by a medical professional or institution (, PA, SINGLE ENDING MACHINE OPERATOR, urgent care, hospital, or longterm...) When possible be specific @ -No Did you speak to anyone other than the patient for history (EMS, parent, family, police, friend...)? What history was obtained from this source @ -No Did you review nursing and triage notes (agree or disagree)? Why? @ -I reviewed and agree with nursing and triage notes Were old charts reviewed (outside hosp., previous admission, EMS record, old EKG, old radiological studies, urgent care reports/EKG's, longterm records)? Report findings @ -No old charts were reviewed Differential Diagnosis (chest pain, altered mental status, abdominal pain women, abdominal pain men, vaginal bleeding, musculoskeletal, weakness, fever, dyspnea, syncope, headache, dizziness, GI bleed, back pain, seizure, CVA, palpatations, mental health)? @ -not applicable EKG interpreted by me (3pts min.). @ -None done X-rays interpreted by me (1pt min.). @ -None done CT interpreted by me (1pt min.). @ -None done U/S interpreted by me (1pt. min.). @ -None done What testing was considered but not performed or refused? (CT, X-rays, U/S, labs)? Why? @ -None What meds were considered but not given or refused? Why? @ -None Did you discuss the management of the patient with other professionals (professionals i.e. DrShree, PA, SINGLE ENDING MACHINE OPERATOR, lab, RT, psych nurse, medical social worker, tile ditcher, teacher, appeals officer, pillowcase cutter)? Give summary @ -No Was smoking cessation discussed for >3mins.? @ -No Was critical care preformed (if so, how long)? @ -No Were there social determinants of health that impacted care today? How? (Homelessness, low income, unemployed, alcoholism, drug addiction, transportation, low edu. Level, literacy, decrease access to med. care, long term, rehab)? @ -No Was there de-escalation of care discussed even if they declined (Discuss DNR or withdrawal of care, Hospice)? DNR status @ -No What co-morbidities impacted this encounter? (DM, HTN, Smoking, COPD, CAD, Cancer, CVA, ARF, Chemo, Hep., AIDS, mental health diagnosis, sleep apnea, morbid obesity)? @ -None Was patient admitted / discharged? Hospital course, mention meds given and route, prescriptions, significant lab abnormalities, going to OR and other pertinent info. @ -82-year-old male presents emergency department for urinary retention. Wooten catheter was placed. 70 mL of urine was removed. Patient reports complete resolution of his symptoms. Patient discharged last to follow-up again with urology for further care. Undiagnosed new problem with uncertain prognosis? @ -No Drug Therapy requiring intensive monitoring for toxicity (Heparin, Nitro, Insulin, Cardizem)? @ -No Were any procedures done? @ -No Diagnosis/symptom? Acute, or Chronic, or Acute on Chronic? Uncomplicated (without systemic symptoms) or Complicated (systemic symptoms)? @ -1. Acute urinary retention Side effects of treatment? @ -No Exacerbation, Progression, or Severe Exacerbation? @ -No Poses a threat to life or bodily function? How? (Chest pain, [place], [place], pneumonia, PE, COPD, DKA, ARF, appy, cholecystitis, CVA, Diverticulitis, Homicidal, Suicidal, threat to staff... and all critical care pts) @ -yes Disposition Clinical Impression: Urinary retention Disposition: HOME SELF-CARE Condition: Good Instructions (If sedation given, give patient instructions): Urinary Retention in Men (ED) Is patient prescribed a controlled substance at d/c from ED?: No Referrals: Hima Pan MD [STAFF PHYSICIAN] - 1-2 days Time of Disposition: 23:29
[2022-10-20 00:16] VITALS: BP 160/87; PULSE 78; RESP 18
== END 2022-10-20 00:16 | disposition home or self-care (01) ==
LOC: EC 23:02
DX: R33.9 Retention of urine, unspecified (principal); E11.9 Type 2 diabetes mellitus without complications; E78.5 Hyperlipidemia, unspecified; I10 Essential (primary) hypertension; Z87.891 Personal history of nicotine dependence; Z88.2 Allergy status to sulfonamides; Z79.899 Other long term (current) drug therapy
CPT/HCPCS: 51702; 51798; 99284

== ENCOUNTER 2022-10-20 05:09 | Emergency (ER) | payer MEDICARE ==
--- NOTE | 2022-10-20 05:27 | ED ---
General Adult HPI - General Source: patient Mode of arrival: wheelchair <Ethan Brower - Last Filed: 10/20/22 08:02> <Doug Pham - Last Filed: 10/20/22 10:52> - General Chief complaint: Urogenital Stated complaint: cath issue Time Seen by Provider: 10/20/22 05:15 - History of Present Illness Initial comments: Dictation was produced using [employer] dictation software. please excuse any grammatical, word or spelling errors. Chief Complaint: 82-year-old male presents with foot catheter malfunction History of Present Illness: 82-year-old male who presents to the emergency department. Patient was seen and evaluated by me earlier this evening or urinary retention. Wooten catheter was placed and patient ended up being discharged. Patient states he went to bed when at around 4 AM he felt like his Wooten catheter was not draining. He also felt some suprapubic discomfort. Patient called EMS and he was brought back to the ER. The ROS documented in this emergency department record has been reviewed and confirmed by me. Those systems with pertinent positive or negative responses have been documented in the HPI. All other systems are other negative and/or noncontributory. (Ethan Brower) - Related Data Home Medications Medication Instructions Recorded Confirmed Atorvastatin Calcium [Lipitor] 40 mg PO Q48H 05/24/21 04/27/22 Cinnamon Bark [Cinnamon] 2,000 mg PO QAM 04/24/22 04/27/22 Tetrahydrozoline 0.05% Ophth 1 drop BOTH EYES QAM 04/24/22 04/27/22 [Visine Eye Drops] Turmeric (Unknown Dose) 1 tab PO DAILY PRN 04/24/22 04/27/22 Allergies Allergy/AdvReac Type Severity Reaction Status Date / Time Sulfa (Sulfonamide Allergy Rash/Hives Verified 10/19/22 23:21 Antibiotics) Review of Systems ROS Other: All systems not noted in ROS Statement are negative. <Ethan Brower - Last Filed: 10/20/22 08:02> ROS Other: All systems not noted in ROS Statement are negative. <Doug Pham - Last Filed: 10/20/22 10:52> ROS Statement: Those systems with pertinent positive or pertinent negative responses have been documented in the HPI. Past Medical History Past Medical History: Diabetes Mellitus, Hyperlipidemia, Hypertension, Prostate Disorder Additional Past Medical History / Comment(s): No medications currently for BP or Diabetes. Bladder CA september/2022 History of Any Multi-Drug Resistant Organisms: None Reported Past Surgical History: Hernia Repair Additional Past Surgical History / Comment(s): Cysts removed from chest X2 and from back X3. Laser eye surgery. Past Anesthesia/Blood Transfusion Reactions: No Reported Reaction Past Psychological History: No Psychological Hx Reported Smoking Status: Former smoker Past Alcohol Use History: Daily Past Drug Use History: None Reported - Past Family History Brother(s) Family Medical History: Cancer Additional Family Medical History / Comment(s): Esophageal cancer. Mother Family Medical History: Cancer Additional Family Medical History / Comment(s): Breast cancer. <Ethan Brower - Last Filed: 10/20/22 08:02> General Exam <Ethan Brower - Last Filed: 10/20/22 08:02> - General Exam Comments Initial Comments: PHYSICAL EXAM: General Impression: Alert and oriented x3, mild distress HEENT: Normocephalic atraumatic, extra-ocular movements intact, pupils equal and reactive to light bilaterally, mucous membranes moist. Cardiovascular: Heart regular rate and rhythm Chest: Able to complete full sentences, no retractions, no tachypnea Abdomen: abdomen soft, suprapubic fullness, non-distended, no organomegaly Musculoskeletal: Pulses present and equal in all extremities, no peripheral edema Motor: no focal deficits noted Neurological: CN II-XII grossly intact, no focal motor or sensory deficits noted Skin: Intact with no visualized rashes Psych: Normal affect and mood : Mild blood at the urethral meatus, no urine in Wooten bag (Ethan Brower) Course Vital Signs 10/20/22 10/20/22 05:10 06:21 Temperature 97.6 F 96.1 F L Pulse Rate 81 68 Respiratory 24 18 Rate Blood Pressure 176/96 146/67 O2 Sat by Pulse 97 94 L Oximetry Medical Decision Making <Ethan Brower - Last Filed: 10/20/22 08:02> <Doug Pham - Last Filed: 10/20/22 10:52> - Medical Decision Making Was pt. sent in by a medical professional or institution (RAPHAEL Banerjee, SR VICE PRESIDENT, urgent care, hospital, or skilled nursing...) When possible be specific @ -No Did you speak to anyone other than the patient for history (EMS, parent, family, police, friend...)? What history was obtained from this source @ -No Did you review nursing and triage notes (agree or disagree)? Why? @ -I reviewed and agree with nursing and triage notes Were old charts reviewed (outside hosp., previous admission, EMS record, old EK G, old radiological studies, urgent care reports/EKG's, skilled nursing records)? Report findings @ -No old charts were reviewed Differential Diagnosis (chest pain, altered mental status, abdominal pain women, abdominal pain men, vaginal bleeding, musculoskeletal, weakness, fever, dyspnea, syncope, headache, dizziness, GI bleed, back pain, seizure, CVA, palpatations, mental health)? @ -not applicable EKG interpreted by me (3pts min.). @ -None done X-rays interpreted by me (1pt min.). @ -None done CT interpreted by me (1pt min.). @ -None done U/S interpreted by me (1pt. min.). @ -None done What testing was considered but not performed or refused? (CT, X-rays, U/S, labs)? Why? @ -None What meds were considered but not given or refused? Why? @ -None Did you discuss the management of the patient with other professionals (professionals i.e. RAPHAEL Banerjee, SR VICE PRESIDENT, lab, RT, psych nurse, home health care social worker, residential interior designer, teacher, radio division officer, briefcase sewer)? Give summary @ -Case discussed with urologist, Dr. lewis requests that Wooten catheter be changed for a larger ideally 20-[place] Wooten catheter. Was smoking cessation discussed for >3mins.? @ -No Was critical care preformed (if so, how long)? @ -No Were there social determinants of health that impacted care today? How? (Homelessness, low income, unemployed, alcoholism, drug addiction, transportation, low edu. Level, literacy, decrease access to med. care, penitentiary, rehab)? @ -No Was there de-escalation of care discussed even if they declined (Discuss DNR or withdrawal of care, Hospice)? DNR status @ -No What co-morbidities impacted this encounter? (DM, HTN, Smoking, COPD, CAD, Cancer, CVA, ARF, Chemo, Hep., AIDS, mental health diagnosis, sleep apnea, morb id obesity)? @ -Urologic procedure Was patient admitted / discharged? Hospital course, mention meds given and route, prescriptions, significant lab abnormalities, going to OR and other pertinent info. @ -82-year-old male presents emergency Department with Wooten catheter malfunction. Patient is significant hematuria causing blood clots likely causing Wooten catheter malfunction. Wooten catheter was exchanged for a 20- [place]. Bladder irrigation continued. Undiagnosed new problem with uncertain prognosis? @ -No Drug Therapy requiring intensive monitoring for toxicity (Heparin, Nitro, Insulin, Cardizem)? @ -No Were any procedures done? @ -No Diagnosis/symptom? Acute, or Chronic, or Acute on Chronic? Uncomplicated (without systemic symptoms) or Complicated (systemic symptoms)? @ -1. Wooten catheter malfunction Side effects of treatment? @ -No Exacerbation, Progression, or Severe Exacerbation? @ -No Poses a threat to life or bodily function? How? (Chest pain, [place], [place], pneumonia, PE, COPD, DKA, ARF, appy, cholecystitis, CVA, Diverticulitis, Homicidal, Suicidal, threat to staff... and all critical care pts) @ -yes Patient care is signed out to Dr. Pham at 8:00 AM (Ethan Brower) Patient signed out to me pending Wooten irrigation. After multiple irrigations, patient's urine drainage is no longer as bloody. It is adequately draining. Originally presented and had his Wooten catheter replaced, however blood clots did cause obstruction. A larger Wooten catheter was placed by the prior physician, and patient was getting irrigation. He is due to follow-up with Dr. Pan. There is adequately lead draining at this time. I do believe it is safe for him to be discharged home. He was in agreement this plan. Remains hemodynamically stable. Strict return precautions discussed. I instructed the patient to follow up with their PCP in the next 1-3 days. I explained that the patient should return to the emergency department if they experience any worsening symptoms. Strict return precautions were discussed with the patient. The patient expressed understanding of these instructions. I answered all questions that the patient had. The patient was discharged home in good condition with their prescriptions and follow up information. (Doug Pham) Disposition <Ethan Brower - Last Filed: 10/20/22 08:02> Is patient prescribed a controlled substance at d/c from ED?: No Time of Disposition: 10:47 <Doug Pham - Last Filed: 10/20/22 10:52> Clinical Impression: Wooten catheter problem Disposition: HOME SELF-CARE Condition: Good Instructions (If sedation given, give patient instructions): Wooten Catheter Placement and Care (ED), How to Change a Catheter Drainage Bag (DC) Referrals: None,Stated [REFERRING] - 1-2 days Hima Pan MD [STAFF PHYSICIAN] - 1-2 days
[2022-10-20 06:23] VITALS: RESP 18
[2022-10-20 11:14] VITALS: BP 171/78; PULSE 69; TEMP 98.2
== END 2022-10-20 11:19 | disposition home or self-care (01) ==
LOC: EC 05:09
DX: T83.091A Other mechanical complication of indwelling urethral catheter, initial encounter (principal); I10 Essential (primary) hypertension; E11.9 Type 2 diabetes mellitus without complications; E78.5 Hyperlipidemia, unspecified; Z79.899 Other long term (current) drug therapy; Z87.891 Personal history of nicotine dependence; Z88.2 Allergy status to sulfonamides
CPT/HCPCS: 51702; 51798; 99283

== ENCOUNTER 2022-10-20 22:36 | Observation (INO) | payer MEDICARE ==
--- NOTE | 2022-10-21 00:07 | ED ---
Male Urogenital HPI - General Chief complaint: Urogenital Stated complaint: Catheter Issues Time Seen by Provider: 10/20/22 22:42 Source: patient Mode of arrival: ambulatory Limitations: no limitations - History of Present Illness Initial comments: Patient is an 82-year-old male presenting with chief complaint of Wooten catheter malfunction. Patient had Wooten catheter replaced last night, catheter was draining up until this evening. Patient has had urine leaking around the catheter. There is a small amount of urine draining into the back. He denies any suprapubic discomfort at this time. He does not know how much output he has had today. - Related Data Home Medications Medication Instructions Recorded Confirmed Atorvastatin Calcium [Lipitor] 40 mg PO Q48H 05/24/21 04/27/22 Cinnamon Bark [Cinnamon] 2,000 mg PO QAM 04/24/22 04/27/22 Tetrahydrozoline 0.05% Ophth 1 drop BOTH EYES QAM 04/24/22 04/27/22 [Visine Eye Drops] Turmeric (Unknown Dose) 1 tab PO DAILY PRN 04/24/22 04/27/22 Allergies Allergy/AdvReac Type Severity Reaction Status Date / Time Sulfa (Sulfonamide Allergy Rash/Hives Verified 10/20/22 22:40 Antibiotics) Review of Systems ROS Statement: Those systems with pertinent positive or pertinent negative responses have been documented in the HPI. ROS Other: All systems not noted in ROS Statement are negative. Past Medical History Past Medical History: Diabetes Mellitus, Hyperlipidemia, Hypertension, Prostate Disorder Additional Past Medical History / Comment(s): No medications currently for BP or Diabetes. Bladder CA september/2022 History of Any Multi-Drug Resistant Organisms: None Reported Past Surgical History: Hernia Repair Additional Past Surgical History / Comment(s): Cysts removed from chest X2 and from back X3. Laser eye surgery. Past Anesthesia/Blood Transfusion Reactions: No Reported Reaction Past Psychological History: No Psychological Hx Reported Smoking Status: Former smoker Past Alcohol Use History: Daily Past Drug Use History: None Reported - Past Family History Brother(s) Family Medical History: Cancer Additional Family Medical History / Comment(s): Esophageal cancer. Mother Family Medical History: Cancer Additional Family Medical History / Comment(s): Breast cancer. General Exam Limitations: no limitations General appearance: alert, in no apparent distress Head exam: Present: atraumatic, normocephalic, normal inspection Eye exam: Present: normal appearance, EOMI. Absent: scleral icterus, periorbital swelling Neck exam: Present: normal inspection, full ROM Neurological exam: Present: alert, oriented X3, CN II-XII intact Psychiatric exam: Present: normal affect, normal mood Skin exam: Present: warm, dry, intact, normal color. Absent: rash Course Vital Signs 10/20/22 10/21/22 22:37 00:02 Temperature 98.0 F 97.3 F L Pulse Rate 74 76 Respiratory 18 20 Rate Blood Pressure 195/93 183/86 O2 Sat by Pulse 95 96 Oximetry Medical Decision Making - Medical Decision Making Was pt. sent in by a medical professional or institution (, [facility], [facility], urgent care, hospital, or fdc...) When possible be specific @ -No Did you speak to anyone other than the patient for history (EMS, parent, family, police, friend...)? What history was obtained from this source @ -No Did you review nursing and triage notes (agree or disagree)? Why? @ -I reviewed and agree with nursing and triage notes Were old charts reviewed (outside hosp., previous admission, EMS record, old EKG, old radiological studies, urgent care reports/EKG's, fdc records)? Report findings @ -No old charts were reviewed Differential Diagnosis (chest pain, altered mental status, abdominal pain women, abdominal pain men, vaginal bleeding, weakness, fever, dyspnea, syncope, headache, dizziness, GI bleed, back pain, seizure, CVA, palpatations, mental health, musculoskeletal)? @ -not applicable EKG interpreted by me (3pts min.). @ -As above X-rays interpreted by me (1pt min.). @ -None done CT interpreted by me (1pt min.). @ -None done U/S interpreted by me (1pt. min.). @ -None done What testing was considered but not performed or refused? (CT, X-rays, U/S, labs)? Why? @ -None What meds were considered but not given or refused? Why? @ -None Did you discuss the management of the patient with other professionals (professionals i.e. , [facility], PEGGER, lab, RT, psych nurse, psych social worker, level vial inspector, teacher, personnel officer, family service caseworker)? Give summary @ -Discussed continued hematuria with urologist sap ppm consultant Dr. Aguirre Was smoking cessation discussed for >3mins.? @ -No Was critical care preformed (if so, how long)? @ -No Were there social determinants of health that impacted care today? How? (Homelessness, low income, unemployed, alcoholism, drug addiction, transportation, low edu. Level, literacy, decrease access to med. care, halfway, rehab)? @ -No Was there de-escalation of care discussed even if they declined (Discuss DNR or withdrawal of care, Hospice)? DNR status @ -No What co-morbidities impacted this encounter? (DM, HTN, Smoking, COPD, CAD, Cancer, CVA, ARF, Chemo, Hep., AIDS, mental health diagnosis, sleep apnea, morbid obesity)? @ -None Was patient admitted / discharged? Hospital course, mention meds given and route, prescriptions, significant lab abnormalities, going to OR and other pertinent info. @ -Patient is an 82-year-old male presenting with chief complaint of Wooten catheter malfunction. This is the patient's third visit in 2 days due to a clogged Wooten catheter. Patient was having leakage around the catheter. Catheter was removed and found to have a clot preventing the floor. Urine. Was replaced with 20-Israeli Wooten. I spoke with urologist sap ppm consultant Dr. Aguirre regarding patient's continued visits, he advised placing him for observation so he can evaluate him in the morning. Patient is agreeable with this plan. I discussed this case with my attending Dr. Brower Undiagnosed new problem with uncertain prognosis? @ -No Drug Therapy requiring intensive monitoring for toxicity (Heparin, Nitro, Insulin, Cardizem)? @ -No Were any procedures done? @ -No Diagnosis/symptom? @ -Hematuria Acute, or Chronic, or Acute on Chronic? @ -Acute Uncomplicated (without systemic symptoms) or Complicated (systemic symptoms)? @ -Complicated Side effects of treatment? @ -No Exacerbation, Progression, or Severe Exacerbation? @ -No Poses a threat to life or bodily function? How? (Chest pain, [place], [place], pneumonia, PE, COPD, DKA, ARF, appy, cholecystitis, CVA, Diverticulitis, Homicidal, Suicidal, threat to staff... and all critical care pts) @ -No - Lab Data Lab Results 10/21/22 Range/Units 00:02 Urine Color Light Red Urine Appearance Cloudy (Clear) Urine pH 5.5 (5.0-8.0) Ur Specific Downs 1.014 (1.001-1.035) Urine Protein 1+ H (Negative) Urine Glucose (UA) 4+ H (Negative) Urine Ketones 2+ H (Negative) Urine Blood Large H (Negative) Urine Nitrite Negative (Negative) Urine Bilirubin Negative (Negative) Urine Urobilinogen <2.0 (<2.0) mg/dL Ur Leukocyte Esterase Small H (Negative) Urine RBC >182 H (0-5) /hpf Urine WBC 30 H (0-5) /hpf Urine Bacteria Rare H (None) /hpf Urine Mucus Occasional H (None) /hpf Disposition Clinical Impression: Hematuria Disposition: ADMITTED IP TO THIS HOSP Condition: Good Time of Disposition: 01:04
[2022-10-21 00:35] LABS: Appearance,Urine Cloudy (Clear); Bacteria,Urine Rare /hpf; Bilirubin,Urine Negative (Negative); Blood,Urine Large (Negative); Color,Urine Light Red; Glucose,Urine (UA) 4+ (Negative); Leukocyte Esterase,Urine Small (Negative); Mucus,Urine Occasional /hpf; Nitrite,Urine Negative (Negative); PH, Urine 5.5 (5.0-8.0); Protein,Urine 1+ (Negative); RBC,Urine >182 /hpf (0-5); Specific Gravity,Urine 1.014 (1.001-1.035); Urobilinogen,Urine <2.0 mg/dL (<2.0); WBC,Urine 30 /hpf (0-5)
[2022-10-21 00:47] LABS: Ketones,Urine 2+ (Negative)
[2022-10-21] MEDS ORDERED: NALOXONE 0.4 MG/ML 1 ML VIAL IV PRN (00:58)
[2022-10-21 02:45] LABS: Basophils % (A) 0 %; Eosinophils # (A) 0.1 k/uL (0-0.7); Eosinophils % (A) 1 %; HCT 35.5 % (39.0-53.0); HGB 12.2 gm/dL (13.0-17.5); Lymphocytes # (A) 1.3 k/uL (1.0-4.8); Lymphocytes % (A) 20 %; MCH 31.7 pg (25.0-35.0); MCHC 34.2 g/dL (31.0-37.0); MCV 92.7 fL (80.0-100.0); Mean Platelet Volume 8.5; Monocytes # (A) 0.5 k/uL (0-1.0); Monocytes % (A) 7 %; Neutrophils # (A) 4.3 k/uL (1.3-7.7); Neutrophils % (A) 68 %; Platelet Count 176 k/uL (150-450); RBC 3.83 m/uL (4.30-5.90); RDW 13.2 % (11.5-15.5); WBC 6.3 k/uL (3.8-10.6)
[2022-10-21] MEDS ORDERED: HYDROcodone/APAP 5-325MG 1 EACH TAB PO PRN (11:52)
[2022-10-21 16:54] LABS: Glucose,Whole Blood 104 mg/dL (70-110)
[2022-10-21] MEDS ORDERED: LOSARTAN 50 MG TAB PO STA (18:03)
--- NOTE | 2022-10-21 19:54 | P.GSHP ---
History of Present Illness H&P Date: 10/21/22 this is an 82-year-old male that underwent a transurethral resection of a bladder tumor by Dr. Pan on October 14 at [facility]. Wooten catheter was removed on October 19. Patient was initially able to void following catheter removal, but developed urinary retention on the night of the October 19 . He presented to the hospital Wooten catheter was subsequently placed. Patient has had two ER presentation since that time for gross hematuria. Denies any dysuria, or abdominal pain. This morning on evaluation the catheter is draining with blood-tinged urine. Denies any fevers or chills. Past Medical History Past Medical History: Diabetes Mellitus, Hyperlipidemia, Hypertension, Prostate Disorder Additional Past Medical History / Comment(s): No medications currently for BP or Diabetes. Bladder CA september/2022 History of Any Multi-Drug Resistant Organisms: None Reported Past Surgical History: Hernia Repair Additional Past Surgical History / Comment(s): Cysts removed from chest X2 and from back X3. Laser eye surgery. Past Anesthesia/Blood Transfusion Reactions: No Reported Reaction Past Psychological History: No Psychological Hx Reported Smoking Status: Former smoker Past Alcohol Use History: Daily Additional Past Alcohol Use History / Comment(s): 2 alcoholic drinks daily on average. Quit smoking in 1984. Past Drug Use History: None Reported - Past Family History Brother(s) Family Medical History: Cancer Additional Family Medical History / Comment(s): Esophageal cancer. Mother Family Medical History: Cancer Additional Family Medical History / Comment(s): Breast cancer. Medications and Allergies Home Medications Medication Instructions Recorded Confirmed Type Apixaban [Eliquis] 5 mg PO BID 10/21/22 10/21/22 History Atorvastatin [Lipitor] 10 mg PO HS 10/21/22 10/21/22 History Ciprofloxacin HCl [Cipro] 500 mg PO BID 10/21/22 10/21/22 History Empagliflozin [Jardiance] 10 mg PO DAILY 10/21/22 10/21/22 History HYDROcodone/APAP 5-325MG [[place] 1 - 2 tab PO Q6H PRN 10/21/22 10/21/22 History 5-325] Insulin Degludec [Tresiba 20 units SQ DAILY@1600 10/21/22 10/21/22 History Flextouch U-200 Pen] Losartan [Cozaar] 50 mg PO DAILY 10/21/22 10/21/22 History Metoprolol Tartrate [Lopressor] 25 mg PO BID 10/21/22 10/21/22 History Allergies Allergy/AdvReac Type Severity Reaction Status Date / Time Sulfa (Sulfonamide Allergy Rash/Hives Verified 10/21/22 07:29 Antibiotics) Surgical - Exam Vital Signs Temp Pulse Resp BP Pulse Ox 98.0 F 74 18 195/93 95 10/20/22 22:37 10/20/22 22:37 10/20/22 22:37 10/20/22 22:37 10/20/22 22:37 - General no distress, no pain - Eyes normal ocular movement, pale - ENT normal nares, normal mucosa - Respiratory normal expansion, normal respiratory effort - Abdomen Abdomen: soft, no non tender - Psychiatric oriented to time, oriented to person Results - Labs 10/21/22 02:11 Abnormal Lab Results - Last 24 Hours (Table) 10/21/22 10/21/22 Range/Units 00:02 02:11 RBC 3.83 L (4.30-5.90) m/uL Hgb 12.2 L (13.0-17.5) gm/dL Hct 35.5 L (39.0-53.0) % Urine Protein 1+ H (Negative) Urine Glucose (UA) 4+ H (Negative) Urine Ketones 2+ H (Negative) Urine Blood Large H (Negative) Ur Leukocyte Esterase Small H (Negative) Urine RBC >182 H (0-5) /hpf Urine WBC 30 H (0-5) /hpf Urine Bacteria Rare H (None) /hpf Urine Mucus Occasional H (None) /hpf Microbiology - Last 24 Hours (Table) 10/21/22 00:02 Urine Culture - Preliminary Urine,Voided Assessment and Plan Assessment: 82-year-old male with hx of gross hematuria and urinary retention following TURBT by Dr. Pan. Has had 3 ER presentation for hematuria/retention. At this time we'll keep the Wooten catheter in place, we'll irrigate as needed. If urine clears up tomorrow then we'll plan on discharging home
[2022-10-21] MEDS: METOPROLOL TARTRATE 25 MG TAB PO SCH (20:07)
[2022-10-21] MEDS: ATORVASTATIN 10 MG TAB PO SCH (20:07)
[2022-10-21 20:11] LABS: Glucose,Whole Blood 175 mg/dL (70-110)
[2022-10-21] MEDS: INSULIN DETEMIR (LEVEMIR) 100 UNIT/ML SYR SQ SCH (21:18)
[2022-10-22 08:24] LABS: Glucose,Whole Blood 90 mg/dL (70-110)
[2022-10-22] MEDS ORDERED: LOSARTAN 50 MG TAB PO SCH (09:00)
[2022-10-22] MEDS: METOPROLOL TARTRATE 25 MG TAB PO SCH ×2 (10:35→20:39)
[2022-10-22] MEDS: DAPAGLIFLOZIN PROPANEDIOL 5 MG TABLET PO SCH (10:35)
[2022-10-22 12:43] LABS: Glucose,Whole Blood 82 mg/dL (70-110)
--- NOTE | 2022-10-22 16:25 | P.PN ---
Subjective Progress Note Date: 10/22/22 No acute overnight events, urine is light red this morning, no clots no issues with poor catheter drainage Objective - Vital Signs Vital signs: Vital Signs Temp 98.3 F 10/22/22 14:43 Pulse 66 10/22/22 14:43 Resp 18 10/22/22 10:35 BP 161/76 10/22/22 14:43 Pulse Ox 95 10/22/22 14:43 FiO2 Intake & Output 10/21/22 10/22/22 10/22/22 18:59 06:59 18:59 Intake Total 118 59 Output Total 600 1200 800 Balance -280 -1200 -311 Intake: Oral 118 59 Output: Urine 600 1200 800 Other: Voiding Method Indwelling Catheter Indwelling Catheter Indwelling Catheter # Bowel Movements 3 - Constitutional General appearance: Present: no acute distress - Genitourinary Genitourinary Comment(s): Urine light red, no clots - Psychiatric Psychiatric: Present: A&O x's 3 - Labs CBC & Chem 7: 10/21/22 02:11 Labs: Abnormal Lab Results - Last 24 Hours (Table) 10/21/22 Range/Units 20:10 POC Glucose (mg/dL) 175 H (70-110) mg/dL Microbiology - Last 24 Hours (Table) 10/21/22 00:02 Urine Culture - Final Urine,Voided Assessment and Plan Assessment: 82-year-old male with hx of gross hematuria and urinary retention following TURBT by Dr. Pan. Has had 3 ER presentation for hematuria/retention. At this time we'll keep the Wooten catheter in place, we'll irrigate as needed. Urine is light red this morning, no clots. Continue to observe for another 24 hours, if he Remains clot free, then we'll plan on discharging home tomorrow
[2022-10-22 17:33] LABS: Glucose,Whole Blood 101 mg/dL (70-110)
[2022-10-22] MEDS: INSULIN DETEMIR (LEVEMIR) 100 UNIT/ML SYR SQ SCH (20:22)
[2022-10-22] MEDS: ATORVASTATIN 10 MG TAB PO SCH (20:39)
[2022-10-22 20:42] LABS: Glucose,Whole Blood 133 mg/dL (70-110)
[2022-10-23 03:22] VITALS: PULSE 66
[2022-10-23] MEDS ORDERED: BISMUTH SUBSALICYLATE 4,192 MG/240 ML BOTTLE PO PRN (03:29)
[2022-10-23 08:18] VITALS: BP 172/85; RESP 16; TEMP 98
--- NOTE | 2022-10-23 08:43 | P.DS ---
Providers Date of admission: 10/21/22 00:59 Attending physician: Shiva Aguirre MD Consults: 10/23/22 08:26 Consult Physician Routine Consulting Provider: Nguyễn Gray Consult Reason/Comments: Medical mgmt Do you want consulting provider notified?: Already Contacted Primary care physician: Nguyễn Gray [facility] Course: this is an 82-year-old male admitted to the hospital with gross hematuria. His hematuria continued to improve throughout his hospital admission. He was discharged from the hospital on October 23 with his Wooten catheter. He was advised to follow-up with Dr. Pan in 3-5 days for catheter removal. Patient Condition at Discharge: Good Plan - Discharge Summary Discharge Rx Participant: No New Discharge Prescriptions: No Action Metoprolol Tartrate [Lopressor] 25 mg PO BID Losartan [Cozaar] 50 mg PO DAILY Atorvastatin [Lipitor] 10 mg PO HS Insulin Degludec [Tresiba Flextouch U-200 Pen] 20 units SQ DAILY@1600 HYDROcodone/APAP 5-325MG [[place] 5-325] 1 - 2 tab PO Q6H PRN PRN Reason: Pain Empagliflozin [Jardiance] 10 mg PO DAILY Ciprofloxacin HCl [Cipro] 500 mg PO BID Apixaban [Eliquis] 5 mg PO BID Discharge Medication List Apixaban [Eliquis] 5 mg PO BID 10/21/22 [History] Atorvastatin [Lipitor] 10 mg PO HS 10/21/22 [History] Ciprofloxacin HCl [Cipro] 500 mg PO BID 10/21/22 [History] Empagliflozin [Jardiance] 10 mg PO DAILY 10/21/22 [History] HYDROcodone/APAP 5-325MG [[place] 5-325] 1 - 2 tab PO Q6H PRN 10/21/22 [History] Insulin Degludec [Tresiba Flextouch U-200 Pen] 20 units SQ DAILY@1600 10/21/22 [History] Losartan [Cozaar] 50 mg PO DAILY 10/21/22 [History] Metoprolol Tartrate [Lopressor] 25 mg PO BID 10/21/22 [History] Follow up Appointment(s)/Referral(s): Nguyễn Gray DO [Primary Care Provider] - 1-2 days Hima Pan MD [STAFF PHYSICIAN] - 3 Days Activity/Diet/Wound Care/Special Instructions: increase fluid intake it is normal to see blood in the urine continue to hold your eliquis until your follow-up
[2022-10-23] MEDS ORDERED: LOSARTAN 50 MG TAB PO SCH (09:00)
[2022-10-23] MEDS: DAPAGLIFLOZIN PROPANEDIOL 5 MG TABLET PO SCH (09:29)
[2022-10-23] MEDS: METOPROLOL TARTRATE 25 MG TAB PO SCH (09:29)
--- NOTE | 2022-10-23 13:43 | P.CONS ---
History of Present Illness - Reason for Consult Consult date: 10/23/22 Medical management-hypertension Requesting physician: Shiva Aguirre - Chief Complaint Hematuria - History of Present Illness This is an 86-year-old gentleman with past medical history significant for bladder cancer, status post TURP September 2022. Developed urinary retention post removal of Wooten catheter, presented to the ER 2, Wooten catheter placed, developed further obstruction, return to the ER, Wooten catheter replaced with gross hematuria. Denies any nausea vomiting or diarrhea. Denies any abdominal pain. Wooten catheter is draining well Hematuria improved, light daley-colored urine without clots. Recent hemoglobin 12.2, platelets 176, UA negative. Urine culture reported no growth after 18 hours. Afebrile, normal WBC. Blood sugars controlled. Hypertensive. Denies any chest pain, palpitations or shortness of breath. Denies any lightheadedness, dizziness or focal deficits. Review of Systems Constitutional: Denied any fatigue denied any fever. Cardio vascular: denied any chest pain, palpitations Gastrointestinal denied any nausea vomiting Pulmonary: Denied any shortness of breath cough Neurologic denied any new focal deficits ROS Statement: Those systems with pertinent positive or pertinent negative responses have been documented in the HPI. ROS Other: All systems not noted in ROS Statement are negative. Past Medical History Past Medical History: Diabetes Mellitus, Hyperlipidemia, Hypertension, Prostate Disorder Additional Past Medical History / Comment(s): No medications currently for BP or Diabetes. Bladder CA september/2022 History of Any Multi-Drug Resistant Organisms: None Reported Past Surgical History: Hernia Repair Additional Past Surgical History / Comment(s): Cysts removed from chest X2 and from back X3. Laser eye surgery. Past Anesthesia/Blood Transfusion Reactions: No Reported Reaction Past Psychological History: No Psychological Hx Reported Smoking Status: Former smoker Past Alcohol Use History: Daily Additional Past Alcohol Use History / Comment(s): 2 alcoholic drinks daily on average. Quit smoking in 1984. Past Drug Use History: None Reported - Past Family History Brother(s) Family Medical History: Cancer Additional Family Medical History / Comment(s): Esophageal cancer. Mother Family Medical History: Cancer Additional Family Medical History / Comment(s): Breast cancer. Medications and Allergies Home Medications Medication Instructions Recorded Confirmed Type Apixaban [Eliquis] 5 mg PO BID 10/21/22 10/21/22 History Atorvastatin [Lipitor] 10 mg PO HS 10/21/22 10/21/22 History Ciprofloxacin HCl [Cipro] 500 mg PO BID 10/21/22 10/21/22 History Empagliflozin [Jardiance] 10 mg PO DAILY 10/21/22 10/21/22 History HYDROcodone/APAP 5-325MG [[place] 1 - 2 tab PO Q6H PRN 10/21/22 10/21/22 History 5-325] Insulin Degludec [Tresiba 20 units SQ DAILY@1600 10/21/22 10/21/22 History Flextouch U-200 Pen] Metoprolol Tartrate [Lopressor] 25 mg PO BID 10/21/22 10/21/22 History Losartan [Cozaar] 100 mg PO DAILY #0 10/23/22 10/21/22 Rx Tamsulosin [Flomax] 0.4 mg PO DAILY #30 cap 10/23/22 Rx Allergies Allergy/AdvReac Type Severity Reaction Status Date / Time Sulfa (Sulfonamide Allergy Rash/Hives Verified 10/21/22 07:29 Antibiotics) Physical Exam Vitals: Vital Signs Temp Pulse Pulse Resp BP BP Pulse Ox 10/23/22 07:00 98 F 16 172/85 97 10/23/22 02:42 98.3 F 66 18 165/86 95 10/22/22 19:41 97.6 F 91 17 182/87 96 10/22/22 14:43 98.3 F 66 161/76 95 Intake and Output 10/22/22 10/23/22 10/23/22 22:59 06:59 14:59 Intake Total 236 Output Total 900 Balance -900 236 Intake: Oral 236 Output: Urine 900 Other: Voiding Method Indwelling Catheter Indwelling Catheter Indwelling Catheter # Bowel Movements 1 PHYSICAL EXAMINATION: GENERAL: Well-developed, well-nourished, alert and oriented x3, no acute distress. HEENT: Pupils are round and equally reacting to light. EOMI. No scleral icterus. No conjunctival pallor. Normocephalic, atraumatic. No pharyngeal erythema. No thyromegaly. CARDIOVASCULAR: S1 and S2 present. No murmurs, rubs, or gallops. PULMONARY: Chest is clear to auscultation, no wheezing or crackles. ABDOMEN: Soft, nontender, nondistended, normoactive bowel sounds. No palpable organomegaly. MUSCULOSKELETAL: No joint swelling or deformity. EXTREMITIES: No cyanosis, clubbing, or pedal edema. NEUROLOGICAL: Gross neurological examination did not reveal any focal deficits. SKIN: Warm and dry,No rashes. Results CBC & Chem 7: 10/21/22 02:11 Labs: Abnormal Lab Results - Last 24 Hours (Table) 10/22/22 Range/Units 20:40 POC Glucose (mg/dL) 133 H (70-110) mg/dL Microbiology - Last 24 Hours (Table) 10/21/22 00:02 Urine Culture - Final Urine,Voided Assessment and Plan Assessment: Hematuria status post TURP, in a patient with history of bladder cancer Hypertension, uncontrolled, losartan increased Diabetes mellitus type 2 Hyperlipidemia Paroxysmal atrial fibrillation, history of Plan: Continue on current medication regime ,monitoring and symptomatic treatment. Losartan increased to 100 mg daily for uncontrolled hypertension- patient has been advised to double up on his prior losartan prescription, follow-up with PCP next week for further recommendations/RX. Eliquis remains on hold until follow up with urology. Increase fluid intake. Patient is being discharged home today as per primary/urology, in a stable condition with guarded prognosis. Thank you for the consult. The impression and plan of care has been dictated as directed. : I performed a history and examination of this patient, discussed the same with the dictator. I agree with the dictator's note ,documented as a scribe. Any additional findings or plans will be noted.
[2022-10-27 20:11] LABS: Glucose,Whole Blood 103 mg/dL (70-110)
== END 2022-10-23 11:32 | disposition home health service (06) ==
LOC: EC 22:36 → 6NMEDSUR 10-21 00:59
PROVIDERS: ADMIT Urology; ATTEND Urology
DX: T83.091A Other mechanical complication of indwelling urethral catheter, initial encounter (principal); E11.8 Type 2 diabetes mellitus with unspecified complications; E78.5 Hyperlipidemia, unspecified; I10 Essential (primary) hypertension; N42.9 Disorder of prostate, unspecified; Z85.51 Personal history of malignant neoplasm of bladder; Z98.890 Other specified postprocedural states; Z87.891 Personal history of nicotine dependence; Z80.0 Family history of malignant neoplasm of digestive organs; Z80.3 Family history of malignant neoplasm of breast; Z79.01 Long term (current) use of anticoagulants; Z79.899 Other long term (current) drug therapy; Z79.4 Long term (current) use of insulin; Z88.2 Allergy status to sulfonamides
CPT/HCPCS: 99284; 85025; 81001; 87086; G0378 ×3

== ENCOUNTER → 2022-11-23 | Outpatient (CLI) | payer MEDICARE ==
--- NOTE | 2022-11-23 10:30 | US ---
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 No nephrolithiasis is seen. No brianna s are identified. The urinary bladder is anechoic and underdistended with smooth 0.9 cm posterior wa ll thickness. IMPRESSION: 1. No hydronephrosis or nephrolithiasis. 2. Underdistended urinary bladder with smooth posterior wall thickening likely related to underdisten tion. Evaluation is limited due to lack of distention.
== END | disposition home or self-care (01) ==
LOC: RADUSWWP 09:39
PROVIDERS: ATTEND Urology
DX: C67.6 Malignant neoplasm of ureteric orifice (principal); N32.89 Other specified disorders of bladder
CPT/HCPCS: 76770

== ENCOUNTER 2024-09-06 09:36 | Inpatient (IN) | payer MEDICARE ==
--- NOTE | 2024-09-06 10:45 | ED ---
General Adult HPI - General Chief complaint: Urogenital Stated complaint: side/abd pain Time Seen by Provider: 09/06/24 09:38 Source: patient, RN notes reviewed, old records reviewed Mode of arrival: wheelchair Limitations: physical limitation - History of Present Illness Initial comments: 84-year-old male presents for evaluation of left-sided groin pain. Patient states he has had symptoms for the past several days but he noticed increased scrotal swelling this morning he also had noticed some bloody discharge in his underwear. Denies fever. Denies vomiting. - Related Data Home Medications Medication Instructions Recorded Confirmed Apixaban [Eliquis] 5 mg PO BID 10/21/22 10/21/22 Atorvastatin [Lipitor] 10 mg PO HS 10/21/22 10/21/22 Ciprofloxacin HCl [Cipro] 500 mg PO BID 10/21/22 10/21/22 Empagliflozin [Jardiance] 10 mg PO DAILY 10/21/22 10/21/22 HYDROcodone/APAP 5-325MG [Fate 1 - 2 tab PO Q6H PRN 10/21/22 10/21/22 5-325] Insulin Degludec [Tresiba 20 units SQ DAILY@1600 10/21/22 10/21/22 Flextouch U-200 Pen] Metoprolol Tartrate [Lopressor] 25 mg PO BID 10/21/22 10/21/22 Previous Rx's Medication Instructions Recorded Losartan [Cozaar] 100 mg PO DAILY #0 10/23/22 Tamsulosin [Flomax] 0.4 mg PO DAILY #30 cap 10/23/22 Allergies Allergy/AdvReac Type Severity Reaction Status Date / Time Sulfa (Sulfonamide Allergy Rash/Hives Verified 09/06/24 09:43 Antibiotics) Review of Systems ROS Statement: Those systems with pertinent positive or pertinent negative responses have been documented in the HPI. ROS Other: All systems not noted in ROS Statement are negative. Past Medical History Past Medical History: Diabetes Mellitus, Hyperlipidemia, Hypertension, Prostate Disorder Additional Past Medical History / Comment(s): No medications currently for BP or Diabetes. Bladder CA september/2022 History of Any Multi-Drug Resistant Organisms: None Reported Past Surgical History: Hernia Repair Additional Past Surgical History / Comment(s): Cysts removed from chest X2 and from back X3. Laser eye surgery. Past Anesthesia/Blood Transfusion Reactions: No Reported Reaction Past Psychological History: No Psychological Hx Reported Smoking Status: Former smoker Past Alcohol Use History: Daily Past Drug Use History: None Reported - Past Family History Brother(s) Family Medical History: Cancer Additional Family Medical History / Comment(s): Esophageal cancer. Mother Family Medical History: Cancer Additional Family Medical History / Comment(s): Breast cancer. General Exam Limitations: physical limitation General appearance: alert, in no apparent distress Head exam: Present: atraumatic, normocephalic Eye exam: Present: normal appearance, PERRL ENT exam: Present: normal exam Respiratory exam: Present: normal lung sounds bilaterally. Absent: respiratory distress, wheezes Cardiovascular Exam: Present: regular rate, normal rhythm GI/Abdominal exam: Present: soft, distended exam: Present: testicular tenderness, scrotal swelling, other (Left-sided scrotal mass, tender to palpation) Extremities exam: Present: normal inspection Neurological exam: Present: alert, oriented X3, CN II-XII intact. Absent: motor sensory deficit Psychiatric exam: Present: normal affect, normal mood Skin exam: Present: warm, dry, intact. Absent: cyanosis, diaphoretic Course Vital Signs 09/06/24 09:38 Temperature 98.0 F Pulse Rate 94 Respiratory 22 Rate Blood Pressure 194/96 O2 Sat by Pulse 97 Oximetry Medical Decision Making - Medical Decision Making Was pt. sent in by a medical professional or institution (RAPHAEL Banerjee, [employer]ION [employer] TIME STUDY TEACHER, urgent care, hospital, or assisted...) When possible be specific @ -No Did you speak to anyone other than the patient for history (EMS, parent, family, police, friend...)? What history was obtained from this source @ -No Did you review nursing and triage notes (agree or disagree)? Why? @ -I reviewed and agree with nursing and triage notes Were old charts reviewed (outside hosp., previous admission, EMS record, old EKG, old radiological studies, urgent care reports/EKG's, assisted records)? Report findings @ -No old charts were reviewed Differential Abdominal Pain Men: Appendicitis, cholecystitis, diverticulosis, ischemic bowel, pancreatitis, h epatitis, UTI, gastroenteritis, AAA, incarcerated hernia, bowel obstruction, constipation, inflammatory bowel, hepatitis, peptic ulcer disease, splenic infarction, perforated viscus, testicular torsion, this is not meant to be an all-inclusive list EKG interpreted by me (3pts min.). @ -As above X-rays interpreted by me (1pt min.). @ -None done CT interpreted by me (1pt min.). @ -CT of the abdomen pelvis shows thickening of the bladder wall, large prostate, and fat-containing inguinal hernia on the left. U/S interpreted by me (1pt. min.). @ -[Ultrasound shows thickening of the scrotal skin and bilateral hydrocele What testing was considered but not performed or refused? (CT, X-rays, U/S, labs)? Why? @ -None What meds were considered but not given or refused? Why? @ -None Did you discuss the management of the patient with other professionals (professionals i.e. , PA, [employer] TIME STUDY TEACHER, lab, RT, psych nurse, clinical social work aide, pump oiler, teacher, bomb squad officer, registered nurse hh case manager)? Give summary @ -[[facility] covering for Dr. Gray Was smoking cessation discussed for >3mins.? @ -No Was critical care preformed (if so, how long)? @ -No Were there social determinants of health that impacted care today? How? (Homelessness, low income, unemployed, alcoholism, drug addiction, transportation, low edu. Level, literacy, decrease access to med. care, correction, rehab)? @ -No Was there de-escalation of care discussed even if they declined (Discuss DNR or withdrawal of care, Hospice)? DNR status @ -No What co-morbidities impacted this encounter? (DM, HTN, Smoking, COPD, CAD, Cancer, CVA, ARF, Chemo, Hep., AIDS, mental health diagnosis, sleep apnea, morbid obesity)? @ -[Diabetes hypertension Was patient admitted / discharged? Hospital course, mention meds given and route, prescriptions, significant lab abnormalities, going to OR and other pertinent info. @84-year-old male with left-sided groin pain and scrotal pain. On exam patient does have a palpable inguinal hernia he has an enlarged scrotum with tenderness to palpation, mild erythema, no crepitus. Vital signs are stable, afebrile. Urinalysis is showing significant infection. CT performed as well as ultrasound of the scrotum. CT shows thickened bladder wall and fat-containing inguinal hernia. Ultrasound shows hydrocele. Patient started on antibiotics pending culture. He will be admitted for pain control and further treatment of urinary tract infection and scrotal cellulitis. Undiagnosed new problem with uncertain prognosis? @ -No Drug Therapy requiring intensive monitoring for toxicity (Heparin, Nitro, Insulin, Cardizem)? @ -No Were any procedures done? @ -No Diagnosis/symptom? @ -[Urinary tract infection, scrotal cellulitis Acute, or Chronic, or Acute on Chronic? @ -Acute Uncomplicated (without systemic symptoms) or Complicated (systemic symptoms)? @ -[complicated Side effects of treatment? @ -[No Exacerbation, Progression, or Severe Exacerbation? @ -No Poses a threat to life or bodily function? How? (Chest pain, USA, ND, pneumonia, PE, COPD, DKA, ARF, appy, cholecystitis, CVA, Diverticulitis, Homicidal, Suicidal, threat to staff... and all critical care pts) @ -No - Lab Data Result diagrams: 09/06/24 10:50 09/06/24 10:50 Lab Results 09/06/24 09/06/24 09/06/24 Range/Units 10:50 10:50 10:50 WBC 11.2 H (3.8-10.6) k/uL RBC 4.55 (4.30-5.90) m/uL Hgb 14.9 (13.0-17.5) gm/dL Hct 44.4 (39.0-53.0) % MCV 97.5 (80.0-100.0) fL MCH 32.7 (25.0-35.0) pg MCHC 33.5 (31.0-37.0) g/dL RDW 14.0 (11.5-15.5) % Plt Count 262 (150-450) k/uL MPV 8.2 Neutrophils % 76 % Lymphocytes % 12 % Monocytes % 6 % Eosinophils % 3 % Basophils % 0 % Neutrophils # 8.6 H (1.3-7.7) k/uL Lymphocytes # 1.4 (1.0-4.8) k/uL Monocytes # 0.7 (0-1.0) k/uL Eosinophils # 0.3 (0-0.7) k/uL Basophils # 0.0 (0-0.2) k/uL PT 11.5 (10.0-12.5) sec INR 1.0 (<1.2) APTT 24.5 (22.0-30.0) sec Sodium 136 L (137-145) mmol/L Potassium 4.1 (3.5-5.1) mmol/L Chloride 102 (98-107) mmol/L Carbon Dioxide 25 (22-30) mmol/L Anion Gap 9 mmol/L BUN 23 H (9-20) mg/dL Creatinine 1.14 (0.66-1.25) mg/dL Est GFR (CKD-EPI)AfAm 69 (>60 ml/min/1.73 sqM) Est GFR (CKD-EPI)NonAf 60 (>60 ml/min/1.73 sqM) Glucose 146 H (74-99) mg/dL Plasma Lactic Acid Davis (0.7-2.0) mmol/L Calcium 8.6 (8.4-10.2) mg/dL Total Bilirubin 0.9 (0.2-1.3) mg/dL AST 19 (17-59) U/L ALT 13 (4-49) U/L Alkaline Phosphatase 60 (38-126) U/L Total Protein 7.0 (6.3-8.2) g/dL Albumin 3.5 (3.5-5.0) g/dL Lipase 219 (23-300) U/L Urine Color Urine Appearance (Clear) Urine pH (5.0-8.0) Ur Specific [place] (1.001-1.035) Urine Protein (Negative) Urine Glucose (UA) (Negative) Urine Ketones (Negative) Urine Blood (Negative) Urine Nitrite (Negative) Urine Bilirubin (Negative) Urine Urobilinogen (<2.0) mg/dL Ur Leukocyte Esterase (Negative) Urine RBC (0-5) /hpf Urine WBC (0-5) /hpf Urine WBC Clumps (None) /hpf Ur Squamous Epith Cells (0-4) /hpf 09/06/24 09/06/24 Range/Units 10:50 12:31 WBC (3.8-10.6) k/uL RBC (4.30-5.90) m/uL Hgb (13.0-17.5) gm/dL Hct (39.0-53.0) % MCV (80.0-100.0) fL MCH (25.0-35.0) pg MCHC (31.0-37.0) g/dL RDW (11.5-15.5) % Plt Count (150-450) k/uL MPV Neutrophils % % Lymphocytes % % Monocytes % % Eosinophils % % Basophils % % Neutrophils # (1.3-7.7) k/uL Lymphocytes # (1.0-4.8) k/uL Monocytes # (0-1.0) k/uL Eosinophils # (0-0.7) k/uL Basophils # (0-0.2) k/uL PT (10.0-12.5) sec INR (<1.2) APTT (22.0-30.0) sec Sodium (137-145) mmol/L Potassium (3.5-5.1) mmol/L Chloride (98-107) mmol/L Carbon Dioxide (22-30) mmol/L Anion Gap mmol/L BUN (9-20) mg/dL Creatinine (0.66-1.25) mg/dL Est GFR (CKD-EPI)AfAm (>60 ml/min/1.73 sqM) Est GFR (CKD-EPI)NonAf (>60 ml/min/1.73 sqM) Glucose (74-99) mg/dL Plasma Lactic Acid Davis 0.9 (0.7-2.0) mmol/L Calcium (8.4-10.2) mg/dL Total Bilirubin (0.2-1.3) mg/dL AST (17-59) U/L ALT (4-49) U/L Alkaline Phosphatase (38-126) U/L Total Protein (6.3-8.2) g/dL Albumin (3.5-5.0) g/dL Lipase (23-300) U/L Urine Color Light Yellow Urine Appearance Cloudy (Clear) Urine pH 6.0 (5.0-8.0) Ur Specific [place] 1.039 H (1.001-1.035) Urine Protein 1+ H (Negative) Urine Glucose (UA) Negative (Negative) Urine Ketones Negative (Negative) Urine Blood Small H (Negative) Urine Nitrite Negative (Negative) Urine Bilirubin Negative (Negative) Urine Urobilinogen <2.0 (<2.0) mg/dL Ur Leukocyte Esterase Large H (Negative) Urine RBC 31 H (0-5) /hpf Urine WBC >182 H (0-5) /hpf Urine WBC Clumps Few H (None) /hpf Ur Squamous Epith Cells 1 (0-4) /hpf Disposition Clinical Impression: Cellulitis of scrotum, UTI (urinary tract infection) Disposition: ADMITTED IP TO THIS HOSP Condition: Stable Is patient prescribed a controlled substance at d/c from ED?: No Time of Disposition: 13:29
[2024-09-06 11:04] LABS: Basophils % (A) 0 %; Eosinophils # (A) 0.3 k/uL (0-0.7); Eosinophils % (A) 3 %; HCT 44.4 % (39.0-53.0); HGB 14.9 gm/dL (13.0-17.5); Lymphocytes # (A) 1.4 k/uL (1.0-4.8); Lymphocytes % (A) 12 %; MCH 32.7 pg (25.0-35.0); MCHC 33.5 g/dL (31.0-37.0); MCV 97.5 fL (80.0-100.0); Mean Platelet Volume 8.2; Monocytes # (A) 0.7 k/uL (0-1.0); Monocytes % (A) 6 %; Neutrophils # (A) 8.6 k/uL (1.3-7.7); Neutrophils % (A) 76 %; Platelet Count 262 k/uL (150-450); RBC 4.55 m/uL (4.30-5.90); WBC 11.2 k/uL (3.8-10.6)
[2024-09-06 11:05] LABS: ALT 13 U/L (4-49); AST 19 U/L (17-59); African American GFR (CKD) 69 (>60 ml/min/1.73 sqM); Albumin 3.5 g/dL (3.5-5.0); Alkaline Phosphatase 60 U/L (38-126); Anion Gap 9 mmol/L; Blood Urea Nitrogen 23 mg/dL (9-20); Calcium 8.6 mg/dL (8.4-10.2); Carbon Dioxide 25 mmol/L (22-30); Chloride 102 mmol/L (98-107); Glucose 146 mg/dL (74-99); Lipase 219 U/L (23-300); Non-African American GFR(CKD) 60 (>60 ml/min/1.73 sqM); Potassium 4.1 mmol/L (3.5-5.1); Sodium 136 mmol/L (137-145); Total Bilirubin 0.9 mg/dL (0.2-1.3)
[2024-09-06 11:34] LABS: Partial Thromboplastin Time 24.5 sec (22.0-30.0); Prothrombin Time 11.5 sec (10.0-12.5)
--- NOTE | 2024-09-06 11:58 | CT ---
EXAMINATION TYPE: CT abdomen pelvis w con DATE OF EXAM: 09/06/2024 11:38 AM COMPARISON: None. CLINICAL INDICATION: Male, 84 years old with history of Groin pain, inguinal hernia, hematuria x 1 da y TECHNIQUE:CT scan of the abdomen and pelvis is performed without Oral Contrast and with IV Contrast, patient injected with 80 mL of Isovue 300. CT DLP: 1894.7 mGycm, Automated exposure control for dose reduction was used. FINDINGS: LUNG BASES-: No visible nodule. No infiltrate. LIVER/GB: No calcified gallstones. No space occupying hepatic lesion. Biliary tree is of normal ca liber. PANCREAS: No inflammation. No distinct mass. SPLEEN: No splenic enlargement. No lesion seen. ADRENALS: No nodule. No thickening. KIDNEYS/BLADDER: No hydronephrosis. No nephrolithiasis. No distinct renal mass. Asymmetric wall th ickening of the urinary bladder could reflect chronic cystitis or neoplasm not excluded. Correlate cl inically. BOWEL: Normal appendix. Normal bowel caliber. No inflammation. GENITAL ORGANS: Prostate gland enlargement identified. LYMPH NODES: No greater than 1cm abdominal or pelvic lymph nodes are appreciated. AORTA: No significant abnormality. OSSEOUS STRUCTURES: No significant abnormality is seen. OTHER: Suprapubic fat attenuation could reflect infection. Correlate clinically. Fat-containing left inguinal hernia. IMPRESSION: 1. Suprapubic fat attenuation could reflect infection. Correlate clinically. Fat-containing left ingu inal hernia. 2.Asymmetric wall thickening of the urinary bladder could reflect chronic cystitis or neoplasm not ex cluded. Correlate clinically. 3. Prostatomegaly [facility], , 09/06/2024 11:56 AM
[2024-09-06 12:50] LABS: Appearance,Urine Cloudy (Clear); Bilirubin,Urine Negative (Negative); Blood,Urine Small (Negative); Color,Urine Light Yellow; Glucose,Urine (UA) Negative (Negative); Ketones,Urine Negative (Negative); Leukocyte Esterase,Urine Large (Negative); Nitrite,Urine Negative (Negative); Protein,Urine 1+ (Negative); RBC,Urine 31 /hpf (0-5); Specific Gravity,Urine 1.039 (1.001-1.035); Squamous Epithelial Cell,Urine 1 /hpf (0-4); Urobilinogen,Urine <2.0 mg/dL (<2.0); WBC,Urine >182 /hpf (0-5)
--- NOTE | 2024-09-06 13:17 | US ---
EXAMINATION TYPE: US scrotum with doppler. DATE OF EXAM: 09/06/2024 COMPARISON: NONE CLINICAL INDICATION: Male, 84 years old with history of pain/swelling; Edema. TECHNIQUE: Grayscale, color Doppler and spectral Doppler imaging of the scrotum. FINDINGS: EXAM MEASUREMENTS: TESTICLES: Right Testicle: 3.6 x 2.8 x 3.0 cm Cystic area .4 cm. Left Testicle: 2.9 x 3.3 x 2.5 cm EPIDIDYMIS HEAD: Right Epididymis: 1.0 x 1.2 x 1.3 cm cystic area seen .5 x .7 x 1.0 cm Left Epididymis: Not well visualized due to edema. Doppler performed to assess for testicular vascularity; good bilateral color flow and spectral wavefo betzy are seen. There is no evidence of testicular torsion. Presence of hydroceles: Yes bilateral Presence of varicoceles: Increased vascularity on the left side. IMPRESSION: 1. Skin thickening noted suggesting cellulitis or infection. 2. Bilateral hydroceles. Left-sided varicocele. 3. Epididymal cyst on the right. [facility], , 09/06/2024 1:14 PM
[2024-09-06] MEDS ORDERED: VANCOMYCIN IV PER PHARMACY 1 EACH MISC MISCELLANE PRN (13:29)
[2024-09-06] MEDS ORDERED: NALOXONE 0.4 MG/ML 1 ML VIAL IV PRN (13:30)
[2024-09-06] MEDS: HYDROcodone/APAP 5-325MG 1 EACH TAB PO STA (14:19)
[2024-09-06] MEDS: HYDROmorphone 0.5 MG/0.5 ML SYRINGE IVP STA (14:26)
[2024-09-06] MEDS: VANCOMYCIN 1,750 MG in SODIUM CHLORIDE 0.9% 500 ML 500 ML IVPB STA (15:19)
[2024-09-06] MEDS ORDERED: HYDROmorphone 0.5 MG/0.5 ML SYRINGE IVP PRN (15:38)
[2024-09-06] MEDS ORDERED: FUROSEMIDE 20 MG TAB PO PRN (15:38)
[2024-09-06] MEDS ORDERED: LORazepam 1 MG TAB PO PRN ×3 (15:39)
[2024-09-06] MEDS ORDERED: LORazepam 0.5 MG TAB PO PRN (15:39)
--- NOTE | 2024-09-06 16:25 | XR ---
EXAMINATION TYPE: XR abdomen complete w decub DATE OF EXAM: 09/06/2024 4:16 PM COMPARISON: None. CLINICAL INDICATION: Male, 84 years old with history of ileus??, TECHNIQUE: XR abdomen complete w decub views of the abdomen are submitted. FINDINGS: There is no convincing evidence of pneumoperitoneum. Distention of small and large bowel suggestive of ileus. Correlate clinically and progress studies ar e advised. No sizable air-fluid levels are seen. No mass effects are noted. No renal calcifications are identified. IMPRESSION: 1. Nonspecific nonobstructive bowel gas pattern . Progress study is recommended. [facility], , 09/06/2024 4:23 PM
--- NOTE | 2024-09-06 16:25 | XR ---
EXAMINATION TYPE: XR chest 1V portable DATE OF EXAM: 09/06/2024 4:23 PM COMPARISON: 05/24/2021 CLINICAL INDICATION: Male, 84 years old with history of chf, TECHNIQUE: XR chest 1V portable views of the chest are obtained. FINDINGS: Demonstrated are scattered senescent parenchymal change. There is no evidence for focal infiltrate. The heart is stable. Hilar and mediastinal structures are within normal limits. Degenerative changes are seen of the dorsal spine. IMPRESSION: 1. Chronic changes without evidence for acute pulmonary disease. [facility], , 09/06/2024 4:23 PM
[2024-09-06] MEDS: cloNIDine HCL 0.1 MG TAB PO SCH (16:47)
[2024-09-06 16:54] LABS: Glucose,Whole Blood 108 mg/dL (70-110)
[2024-09-06] MEDS: INSULIN GLARGINE (LANTUS) 100 UNIT/ML SYR SQ SCH (17:45)
[2024-09-06 20:12] LABS: Glucose,Whole Blood 197 mg/dL (70-110)
[2024-09-06] MEDS: HEPARIN SODIUM,PORCINE 5,000 UNIT/ML 1 ML VIAL SQ SCH (20:27)
--- NOTE | 2024-09-06 20:43 | HP ---
HISTORY AND PHYSICAL CHIEF COMPLAINT: Groin pain, abdominal pain as well as testicular pain and swelling and redness. HISTORY OF PRESENT ILLNESS: This 84-year-old gentleman with a past medical history of multiple medical issues, diabetes mellitus, hypertension, hyperlipidemia, being followed by Dr. Gray in the outpatient, complaining of left scrotal pain and swelling for the last 2 days. The patient has some erythema. The patient also noted some blood in the underwear this morning. The patient also has abdominal distention. The patient came to [facility] and white count was 11.2. Otherwise, UA showed possible UTI and the patient also had a CT scan of the abdomen and pelvis, which showed prostatomegaly. The scrotal ultrasound showed bilateral hydrocele, increased vascularity of the left side also. There is no history of fever, rigors, or chills at this time. The patient has been admitted for further evaluation and treatment. PAST MEDICAL HISTORY: Reviewed include hypertension, hyperlipidemia, and diabetes mellitus type 2. Rest of history and rest of chart is also reviewed. HOME MEDICATIONS: Reviewed include Tresiba. Rest of the medications and chart also reviewed. ALLERGIES: Sulfa. FAMILY HISTORY: History of esophageal cancer. SOCIAL HISTORY: Previous smoking. Alcohol daily. REVIEW OF SYSTEMS: A 14-point review of systems is negative except as mentioned earlier. PHYSICAL EXAMINATION: VITAL SIGNS: Pulse is 94, blood pressure 194/96, and respirations 20. HEENT: Conjunctivae normal. NECK: No JVD. CARDIOVASCULAR: S1, S2 muffled. RESPIRATION: Breath sounds diminished at the bases. Bilateral scattered rhonchi and crackles. ABDOMEN: Soft and obese. No ascites. Tense. SCROTAL: Bilateral swelling and severe tenderness with erythema present suggestive of scrotal cellulitis. LEGS: No edema. No swelling. SKIN: As mentioned earlier. JOINTS: No active deforming arthropathy. NERVOUS SYSTEM: No focal deficits. LABS: At this time, WBC 11.2. Rest of the labs noted. ASSESSMENT: 1. Bilateral scrotal cellulitis and hydrocele with possible sepsis and severe pain present on admission. 2. Abdominal distention, rule out ascites. 3. Rule out chronic liver disease. 4. Possible chronic obstructive pulmonary disease. 5. Hypertension. 6. Hyperlipidemia. 7. Diabetes mellitus type 2. 8. History of bladder cancer. 9. Remote history of nicotine dependence. 10.History of current EtOH. RECOMMENDATION: This 84-year-old gentleman, presented with multiple complex medical issues. We will monitor the patient closely. I would recommend broad-spectrum IV antibiotics, Infectious Disease evaluation, Neurology evaluation. I would also recommend bronchodilators. Monitor blood sugars closely. There is no ascites per se in the CT scan of the abdomen. I would recommend acute abdominal flatplate and continue to monitor. Otherwise, symptomatic treatment also will be provided. Overall prognosis guarded because of multiple complex medical issues. Further recommendations to follow. MMODL / IJN: [id number] /
[2024-09-07 05:48] LABS: Glucose,Whole Blood 69 mg/dL (70-110)
[2024-09-07 05:55] LABS: ALT 11 U/L (4-49); AST 18 U/L (17-59); African American GFR (CKD) 71 (>60 ml/min/1.73 sqM); Albumin 3.1 g/dL (3.5-5.0); Albumin/Globulin Ratio 0.9; Alkaline Phosphatase 56 U/L (38-126); Anion Gap 8 mmol/L; Blood Urea Nitrogen 21 mg/dL (9-20); Calcium 8.4 mg/dL (8.4-10.2); Carbon Dioxide 24 mmol/L (22-30); Chloride 104 mmol/L (98-107); Globulin 3.3 g/dL; Glucose 78 mg/dL (74-99); Non-African American GFR(CKD) 61 (>60 ml/min/1.73 sqM); Potassium 3.9 mmol/L (3.5-5.1); Sodium 136 mmol/L (137-145); Total Bilirubin 0.8 mg/dL (0.2-1.3); Total Protein 6.4 g/dL (6.3-8.2)
[2024-09-07] MEDS: VANCOMYCIN 1,500 MG in SODIUM CHLORIDE 0.9% 500 ML 500 ML IVPB SCH (05:57)
[2024-09-07 06:16] LABS: Glucose,Whole Blood 139 mg/dL (70-110)
[2024-09-07 08:38] LABS: Basophils # (A) 0.08 X 10*3/uL (0.00-0.10); Basophils % (A) 0.8 %; Eosinophils # (A) 0.44 X 10*3/uL (0.04-0.35); Eosinophils % (A) 4.3 %; HCT 43.2 % (39.6-50.0); HGB 14.2 g/dL (13.0-17.0); Lymphocytes # (A) 1.04 X 10*3/uL (0.90-5.00); Lymphocytes % (A) 10.2 %; MCH 32.6 pg (27.0-32.0); MCHC 32.9 g/dL (32.0-37.0); MCV 99.1 FL (80.0-97.0); Mean Platelet Volume 11.5 FL (9.5-12.2); Monocytes # (A) 1.25 X 10*3/uL (0.20-1.00); Monocytes % (A) 12.2 %; NRBC Per 100 WBC 0 X 10*3/uL (0.00-0.01); Neutrophils # (A) 7.35 X 10*3/uL (1.80-7.70); Neutrophils % (A) 71.9 %; Platelet Count 246 X 10*3/uL (140-440); RBC 4.36 X 10*6/uL (4.40-5.60); WBC 10.22 X 10*3/uL (4.50-10.00)
[2024-09-07] MEDS: HYDROcodone/APAP 5-325MG 1 EACH TAB PO PRN (11:07)
--- NOTE | 2024-09-07 12:10 | P.GSCN ---
History of Present Illness Consult date: 09/07/24 Reason for Consult: Abdominal distention, pain History of present illness: Is an 84-year-old male who had complaints of abdominal pain yesterday. Patient states that his abdomen was more distended. Patient's CAT scan is suggestive of a left inguinal hernia with possible cellulitis on the left groin. Patient states that he has minimal pain in the left groin. He has had some flatus. Past Medical History Past Medical History: Diabetes Mellitus, Hyperlipidemia, Hypertension, Prostate Disorder Additional Past Medical History / Comment(s): No medications currently for BP or Diabetes. Bladder CA september/2022 History of Any Multi-Drug Resistant Organisms: None Reported Past Surgical History: Hernia Repair Additional Past Surgical History / Comment(s): Cysts removed from chest X2 and from back X3. Laser eye surgery. Past Anesthesia/Blood Transfusion Reactions: No Reported Reaction Past Psychological History: No Psychological Hx Reported Smoking Status: Former smoker Past Alcohol Use History: Daily Additional Past Alcohol Use History / Comment(s): 2 alcoholic drinks daily on average. Quit smoking in 1984. Past Drug Use History: None Reported - Past Family History Brother(s) Family Medical History: Cancer Additional Family Medical History / Comment(s): Esophageal cancer. Mother Family Medical History: Cancer Additional Family Medical History / Comment(s): Breast cancer. Medications and Allergies Home Medications Medication Instructions Recorded Confirmed Type Insulin Degludec [Tresiba 20 units SQ DAILY@1600 10/21/22 09/06/24 History Flextouch U-200 Pen] Furosemide [Lasix] 20 mg PO DAILY PRN 09/06/24 09/06/24 History Allergies Allergy/AdvReac Type Severity Reaction Status Date / Time Sulfa (Sulfonamide Allergy Rash/Hives Verified 09/06/24 14:26 Antibiotics) Surgical - Exam Vital Signs Temp Pulse Resp BP Pulse Ox 98.0 F 94 22 194/96 97 09/06/24 09:38 09/06/24 09:38 09/06/24 09:38 09/06/24 09:38 09/06/24 09:38 - General well developed, well nourished, no distress - Eyes PERRL - ENT normal pinna - Neck no masses - Respiratory normal expansion - Cardiovascular Rhythm: regular - Abdomen Abdomen soft, distended. Per the nursing staff there is less distention today. There is no evidence of bowel obstruction. Results - Labs 09/07/24 04:48 09/07/24 04:48 Abnormal Lab Results - Last 24 Hours (Table) 09/06/24 09/06/24 09/07/24 Range/Units 12:31 20:11 04:48 WBC (4.50-10.00) X 10*3/uL RBC (4.40-5.60) X 10*6/uL MCV (80.0-97.0) FL MCH (27.0-32.0) pg Immature Gran # (0.00-0.04) X 10*3/uL Monocytes # (0.20-1.00) X 10*3/uL Eosinophils # (0.04-0.35) X 10*3/uL Sodium 136 L (137-145) mmol/L BUN 21 H (9-20) mg/dL POC Glucose (mg/dL) 197 H (70-110) mg/dL Albumin 3.1 L (3.5-5.0) g/dL Ur Specific [place] 1.039 H (1.001-1.035) Urine Protein 1+ H (Negative) Urine Blood Small H (Negative) Ur Leukocyte Esterase Large H (Negative) Urine RBC 31 H (0-5) /hpf Urine WBC >182 H (0-5) /hpf Urine WBC Clumps Few H (None) /hpf 09/07/24 09/07/24 09/07/24 Range/Units 04:48 05:44 06:14 WBC 10.22 H (4.50-10.00) X 10*3/uL RBC 4.36 L (4.40-5.60) X 10*6/uL MCV 99.1 H (80.0-97.0) FL MCH 32.6 H (27.0-32.0) pg Immature Gran # 0.06 H (0.00-0.04) X 10*3/uL Monocytes # 1.25 H (0.20-1.00) X 10*3/uL Eosinophils # 0.44 H (0.04-0.35) X 10*3/uL Sodium (137-145) mmol/L BUN (9-20) mg/dL POC Glucose (mg/dL) 69 L 139 H (70-110) mg/dL Albumin (3.5-5.0) g/dL Ur Specific [place] (1.001-1.035) Urine Protein (Negative) Urine Blood (Negative) Ur Leukocyte Esterase (Negative) Urine RBC (0-5) /hpf Urine WBC (0-5) /hpf Urine WBC Clumps (None) /hpf Diabetes panel 09/07/24 Range/Units 04:48 Sodium 136 L (137-145) mmol/L Potassium 3.9 (3.5-5.1) mmol/L Chloride 104 (98-107) mmol/L Carbon Dioxide 24 (22-30) mmol/L BUN 21 H (9-20) mg/dL Creatinine 1.11 (0.66-1.25) mg/dL Glucose 78 (74-99) mg/dL Calcium 8.4 (8.4-10.2) mg/dL AST 18 (17-59) U/L ALT 11 (4-49) U/L Alkaline Phosphatase 56 (38-126) U/L Total Protein 6.4 (6.3-8.2) g/dL Albumin 3.1 L (3.5-5.0) g/dL Calcium panel 09/07/24 Range/Units 04:48 Calcium 8.4 (8.4-10.2) mg/dL Albumin 3.1 L (3.5-5.0) g/dL Pituitary panel 09/07/24 Range/Units 04:48 Sodium 136 L (137-145) mmol/L Potassium 3.9 (3.5-5.1) mmol/L Chloride 104 (98-107) mmol/L Carbon Dioxide 24 (22-30) mmol/L BUN 21 H (9-20) mg/dL Creatinine 1.11 (0.66-1.25) mg/dL Glucose 78 (74-99) mg/dL Calcium 8.4 (8.4-10.2) mg/dL Adrenal panel 09/07/24 Range/Units 04:48 Sodium 136 L (137-145) mmol/L Potassium 3.9 (3.5-5.1) mmol/L Chloride 104 (98-107) mmol/L Carbon Dioxide 24 (22-30) mmol/L BUN 21 H (9-20) mg/dL Creatinine 1.11 (0.66-1.25) mg/dL Glucose 78 (74-99) mg/dL Calcium 8.4 (8.4-10.2) mg/dL Total Bilirubin 0.8 (0.2-1.3) mg/dL AST 18 (17-59) U/L ALT 11 (4-49) U/L Alkaline Phosphatase 56 (38-126) U/L Total Protein 6.4 (6.3-8.2) g/dL Albumin 3.1 L (3.5-5.0) g/dL Assessment and Plan Assessment: Resolving abdominal distention. Patient will have his left inguinal hernia observed currently. When he is medically optimized this could be considered as possible outpatient surgery.
[2024-09-07 12:20] LABS: Glucose,Whole Blood 105 mg/dL (70-110)
[2024-09-07] MEDS ORDERED: IPRATROPIUM-ALBUTEROL 3 ML NEB INHALATION PRN (13:46)
--- NOTE | 2024-09-07 14:33 | PN ---
PROGRESS NOTE DATE OF SERVICE: 09/07/2024 SUBJECTIVE: This is an 84-year-old gentleman admitted with significant groin pain and bilateral scrotal cellulitis and hydrocele, also had abdominal issues, possibly ileus also. The patient is being closely monitored. The patient is started on broad-spectrum IV antibiotics. PAST MEDICAL HISTORY: Reviewed. REVIEW OF SYSTEMS: A 14-point review of systems is negative except as mentioned earlier. CURRENT MEDICATIONS: Reviewed. PHYSICAL EXAMINATION: VITAL SIGNS: Pulse is 73, blood pressure 142/70, respirations 16. HEENT: Conjunctivae normal. NECK: No JVD. CARDIOVASCULAR: S1, S2. RESPIRATIONS: Breath sounds diminished at the bases. A few scattered rhonchi. ABDOMEN: Soft, distended. Mild diffuse discomfort. No guarding. There is no mass palpable. Bowel sounds diminished. LEGS: No edema. NERVOUS SYSTEM: Nonfocal. LABORATORY DATA: Noted. ASSESSMENT: 1. Acute bilateral scrotal cellulitis with hydrocele with possible sepsis, severe pain present on admission. 2. Abdominal distention, possibly ileus. 3. Rule out chronic liver disease. 4. Chronic obstructive pulmonary disease. 5. Hypertension. 6. Hyperlipidemia. 7. Diabetes mellitus, type 2. 8. History of bladder cancer. 9. Remote history of nicotine dependence. 10.History of EtOH. RECOMMENDATIONS: Recommend to continue current management and continue symptomatic treatment. Otherwise, at this time, I recommend continue with empiric antibiotics. Surgery, Infectious Disease and Urology evaluations. Guarded prognosis because of multiple complex medical issues. Further recommendations to follow. See orders for further details. MMODL / IJN: [id number] /
[2024-09-07] MEDS: IPRATROPIUM-ALBUTEROL 3 ML NEB INHALATION SCH (16:18)
[2024-09-07 17:15] LABS: Glucose,Whole Blood 120 mg/dL (70-110)
[2024-09-07 20:06] LABS: Glucose,Whole Blood 171 mg/dL (70-110)
--- NOTE | 2024-09-07 23:20 | P.CONS ---
History of Present Illness - Reason for Consult Consult date: 09/07/24 Sepsis Requesting physician: Lorena Casey - Chief Complaint Left groin pain and swelling x 1 day - History of Present Illness Patient is a 84-year-old male with a past medical history significant for diabetes mellitus hypertension hyperlipidemia and prostate disorder, patient has been brought to the hospital for evaluation of left-sided groin pain in this patient symptom apparently started the day of presentation to the hospital patient been complaining of sharp pain severe in intensity without any radiation also noted to have some scrotal swelling and some bloody discharge in his underwear patient denies having any fever or any chills on presentation to the hospital patient was afebrile and no fever have recorded subsequently patient was not tachycardic hypotensive or hypoxic patient did have a white count of 11.2 with a left shift creatinine is 1.14 electrolytes are normal liver enzymes are normal urine is positive blood urine culture has been obtained patient did have abdominal pelvis CT suprapubic fat deterioration Cortaflex infection fat-containing left inguinal hernia estimated wall thickening of the urinary bladder could reflect chronic cystitis or neoplasm prostatomegaly patient also have a scrotal ultrasound skin thickening noted suggest cellulitis or infection bilateral hydrocele patient has been treated with Rocephin and vancomycin infectious disease was consulted this afternoon for sepsis Review of Systems Positive point and negatives has been mentioned in the HPI, complete review of systems was performed and all other systems are negative Past Medical History Past Medical History: Diabetes Mellitus, Hyperlipidemia, Hypertension, Prostate Disorder Additional Past Medical History / Comment(s): No medications currently for BP or Diabetes. Bladder CA september/2022 History of Any Multi-Drug Resistant Organisms: None Reported Past Surgical History: Hernia Repair Additional Past Surgical History / Comment(s): Cysts removed from chest X2 and from back X3. Laser eye surgery. Past Anesthesia/Blood Transfusion Reactions: No Reported Reaction Past Psychological History: No Psychological Hx Reported Smoking Status: Former smoker Past Alcohol Use History: Daily Additional Past Alcohol Use History / Comment(s): 2 alcoholic drinks daily on average. Quit smoking in 1984. Past Drug Use History: None Reported - Past Family History Brother(s) Family Medical History: Cancer Additional Family Medical History / Comment(s): Esophageal cancer. Mother Family Medical History: Cancer Additional Family Medical History / Comment(s): Breast cancer. Medications and Allergies Home Medications Medication Instructions Recorded Confirmed Type Insulin Degludec [Tresiba 20 units SQ DAILY@1600 10/21/22 09/06/24 History Flextouch U-200 Pen] Furosemide [Lasix] 20 mg PO DAILY PRN 09/06/24 09/06/24 History Allergies Allergy/AdvReac Type Severity Reaction Status Date / Time Sulfa (Sulfonamide Allergy Rash/Hives Verified 09/06/24 14:26 Antibiotics) Physical Exam Vitals: Vital Signs Temp Pulse Pulse Resp BP BP Pulse Ox 09/07/24 07:15 97.6 F 73 16 142/76 94 L 09/07/24 02:00 97.4 F L 91 17 126/69 96 09/06/24 20:00 97.6 F 92 18 172/89 95 09/06/24 17:41 98.1 F 90 16 158/93 95 Intake and Output 09/06/24 09/07/24 09/07/24 22:59 06:59 14:59 Intake Total 100 Balance 100 Intake: Oral 100 Other: Voiding Method Toilet Toilet # Voids 2 2 GENERAL DESCRIPTION: Elderly male lying in bed, no distress. No tachypnea or accessory muscle of respiration use. HEENT: Shows Pallor , no scleral icterus. Oral mucous membrane is dry. No pharyngeal erythema or thrush NECK: Trachea central, no thyromegaly. LUNGS: Unlabored breathing. Clear to auscultation anteriorly. No wheeze or crackle. HEART: S1, S2, regular rate and rhythm. No loud murmur ABDOMEN: Soft, no tenderness , : Left groin excoriated did have some erythema tenderness but no skin breakdown or drainage EXTREMITIES: No edema of feet. SKIN: No rash, no masses palpable. NEUROLOGICAL: The patient is awake, alert, oriented x3, mood and affect normal. Results CBC & Chem 7: 09/07/24 04:48 09/07/24 04:48 Labs: Abnormal Lab Results - Last 24 Hours (Table) 09/06/24 09/07/24 09/07/24 Range/Units 20:11 04:48 04:48 WBC 10.22 H (4.50-10.00) X 10*3/uL RBC 4.36 L (4.40-5.60) X 10*6/uL MCV 99.1 H (80.0-97.0) FL MCH 32.6 H (27.0-32.0) pg Immature Gran # 0.06 H (0.00-0.04) X 10*3/uL Monocytes # 1.25 H (0.20-1.00) X 10*3/uL Eosinophils # 0.44 H (0.04-0.35) X 10*3/uL Sodium 136 L (137-145) mmol/L BUN 21 H (9-20) mg/dL POC Glucose (mg/dL) 197 H (70-110) mg/dL Albumin 3.1 L (3.5-5.0) g/dL 09/07/24 09/07/24 Range/Units 05:44 06:14 WBC (4.50-10.00) X 10*3/uL RBC (4.40-5.60) X 10*6/uL MCV (80.0-97.0) FL MCH (27.0-32.0) pg Immature Gran # (0.00-0.04) X 10*3/uL Monocytes # (0.20-1.00) X 10*3/uL Eosinophils # (0.04-0.35) X 10*3/uL Sodium (137-145) mmol/L BUN (9-20) mg/dL POC Glucose (mg/dL) 69 L 139 H (70-110) mg/dL Albumin (3.5-5.0) g/dL Assessment and Plan (1) Cellulitis of left groin Current Visit: Yes Status: Acute Code(s): L03.314 - CELLULITIS OF GROIN SNOMED Code(s): 74825537 (2) Cellulitis of scrotum Current Visit: Yes Status: Acute Code(s): N49.2 - INFLAMMATORY DISORDERS OF SCROTUM SNOMED Code(s): 75927084 (3) UTI (urinary tract infection) Current Visit: Yes Status: Acute Code(s): N39.0 - URINARY TRACT INFECTION, SITE NOT SPECIFIED SNOMED Code(s): 77303783 Plan: 1patient presented hospital acute pain to the left groin area with evidence of swelling as well as redness concerning for cellulitis likely from gram-positive skin zofia, gram-negative infection not entirely excluded, patient did have CT as well as ultrasound did not mention any abscess 2significant abnormality of the bladder on the CT along with positive UA and urinary symptom difficulty urination and some burning concerning for UTI likely from UTI gram-negative pathogen 3patient will be treated with the Rocephin 2 g daily and vancomycin pharmacy to dose while waiting for the culture to finalize We will follow on clinical condition and cultures to further adjust medication if needed Thank you for this consultation we will follow the patient along with you Dictation was produced using [employer] dictation software. please excuse any grammatical, word or spelling errors. Time with Patient: Greater than 30
[2024-09-08] MEDS: VANCOMYCIN 1,500 MG in SODIUM CHLORIDE 0.9% 500 ML 500 ML IVPB SCH (03:49)
--- NOTE | 2024-09-08 07:04 | P.GSCN ---
History of Present Illness Consult date: 09/07/24 Reason for Consult: Scrotal swelling Requesting physician: Nguyễn Gray History of present illness: The patient is an 84-year-old white male well-known to me. 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 He completed a 6-week course of intravesical gemcitabine in January 2023. He was advised to undergo repeat bladder biopsies following this, but it was canceled due to the fact that he sustained several falls. He is now admitted with scrotal swelling, onset of symptoms September 05, 2024. Review of Systems - Constitutional Denies chills, Denies fever - Genitourinary Reports dysuria, Reports hematuria Past Medical History Past Medical History: Diabetes Mellitus, Hyperlipidemia, Hypertension, Prostate Disorder Additional Past Medical History / Comment(s): No medications currently for BP or Diabetes. Bladder CA september/2022 History of Any Multi-Drug Resistant Organisms: None Reported Past Surgical History: Hernia Repair Additional Past Surgical History / Comment(s): Cysts removed from chest X2 and from back X3. Laser eye surgery. Past Anesthesia/Blood Transfusion Reactions: No Reported Reaction Past Psychological History: No Psychological Hx Reported Smoking Status: Former smoker Past Alcohol Use History: Daily Additional Past Alcohol Use History / Comment(s): 2 alcoholic drinks daily on average. Quit smoking in 1984. Past Drug Use History: None Reported - Past Family History Brother(s) Family Medical History: Cancer Additional Family Medical History / Comment(s): Esophageal cancer. Mother Family Medical History: Cancer Additional Family Medical History / Comment(s): Breast cancer. Medications and Allergies Home Medications Medication Instructions Recorded Confirmed Type Insulin Degludec [Tresiba 20 units SQ DAILY@1600 10/21/22 09/06/24 History Flextouch U-200 Pen] Furosemide [Lasix] 20 mg PO DAILY PRN 09/06/24 09/06/24 History Allergies Allergy/AdvReac Type Severity Reaction Status Date / Time Sulfa (Sulfonamide Allergy Rash/Hives Verified 09/06/24 14:26 Antibiotics) Surgical - Exam Vital Signs Temp Pulse Resp BP Pulse Ox 98.0 F 94 22 194/96 97 09/06/24 09:38 09/06/24 09:38 09/06/24 09:38 09/06/24 09:38 09/06/24 09:38 - General well developed, well nourished, no distress - Respiratory normal respiratory effort left: wheezing - Abdomen Abdomen: soft, non tender, no guarding, no rigid, no rebound - Genitourinary Moderate penoscrotal edema is noted. The right testy is palpably normal. Is difficult to palpate the left testy. Mild erythema overlies the left hemiscrotum, though there is no cellulitis. There is no drainage or fluctuance. - Psychiatric oriented to time, oriented to person, oriented to place, speech is normal, memory intact Results - Labs 09/07/24 04:48 09/07/24 04:48 Abnormal Lab Results - Last 24 Hours (Table) 09/06/24 09/06/24 09/06/24 Range/Units 10:50 10:50 12:31 WBC 11.2 H (3.8-10.6) k/uL RBC (4.40-5.60) X 10*6/uL MCV (80.0-97.0) FL MCH (27.0-32.0) pg Immature Gran # (0.00-0.04) X 10*3/uL Neutrophils # 8.6 H (1.3-7.7) k/uL Monocytes # (0.20-1.00) X 10*3/uL Eosinophils # (0.04-0.35) X 10*3/uL Sodium 136 L (137-145) mmol/L BUN 23 H (9-20) mg/dL Glucose 146 H (74-99) mg/dL POC Glucose (mg/dL) (70-110) mg/dL Albumin (3.5-5.0) g/dL Ur Specific [place] 1.039 H (1.001-1.035) Urine Protein 1+ H (Negative) Urine Blood Small H (Negative) Ur Leukocyte Esterase Large H (Negative) Urine RBC 31 H (0-5) /hpf Urine WBC >182 H (0-5) /hpf Urine WBC Clumps Few H (None) /hpf 09/06/24 09/07/24 09/07/24 Range/Units 20:11 04:48 04:48 WBC 10.22 H (3.8-10.6) k/uL RBC 4.36 L (4.40-5.60) X 10*6/uL MCV 99.1 H (80.0-97.0) FL MCH 32.6 H (27.0-32.0) pg Immature Gran # 0.06 H (0.00-0.04) X 10*3/uL Neutrophils # (1.3-7.7) k/uL Monocytes # 1.25 H (0.20-1.00) X 10*3/uL Eosinophils # 0.44 H (0.04-0.35) X 10*3/uL Sodium 136 L (137-145) mmol/L BUN 21 H (9-20) mg/dL Glucose (74-99) mg/dL POC Glucose (mg/dL) 197 H (70-110) mg/dL Albumin 3.1 L (3.5-5.0) g/dL Ur Specific [place] (1.001-1.035) Urine Protein (Negative) Urine Blood (Negative) Ur Leukocyte Esterase (Negative) Urine RBC (0-5) /hpf Urine WBC (0-5) /hpf Urine WBC Clumps (None) /hpf 09/07/24 09/07/24 Range/Units 05:44 06:14 WBC (3.8-10.6) k/uL RBC (4.40-5.60) X 10*6/uL MCV (80.0-97.0) FL MCH (27.0-32.0) pg Immature Gran # (0.00-0.04) X 10*3/uL Neutrophils # (1.3-7.7) k/uL Monocytes # (0.20-1.00) X 10*3/uL Eosinophils # (0.04-0.35) X 10*3/uL Sodium (137-145) mmol/L BUN (9-20) mg/dL Glucose (74-99) mg/dL POC Glucose (mg/dL) 69 L 139 H (70-110) mg/dL Albumin (3.5-5.0) g/dL Ur Specific [place] (1.001-1.035) Urine Protein (Negative) Urine Blood (Negative) Ur Leukocyte Esterase (Negative) Urine RBC (0-5) /hpf Urine WBC (0-5) /hpf Urine WBC Clumps (None) /hpf Diabetes panel 09/06/24 09/07/24 Range/Units 10:50 04:48 Sodium 136 L 136 L (137-145) mmol/L Potassium 4.1 3.9 (3.5-5.1) mmol/L Chloride 102 104 (98-107) mmol/L Carbon Dioxide 25 24 (22-30) mmol/L BUN 23 H 21 H (9-20) mg/dL Creatinine 1.14 1.11 (0.66-1.25) mg/dL Glucose 146 H 78 (74-99) mg/dL Calcium 8.6 8.4 (8.4-10.2) mg/dL AST 19 18 (17-59) U/L ALT 13 11 (4-49) U/L Alkaline Phosphatase 60 56 (38-126) U/L Total Protein 7.0 6.4 (6.3-8.2) g/dL Albumin 3.5 3.1 L (3.5-5.0) g/dL Calcium panel 09/06/24 09/07/24 Range/Units 10:50 04:48 Calcium 8.6 8.4 (8.4-10.2) mg/dL Albumin 3.5 3.1 L (3.5-5.0) g/dL Pituitary panel 09/06/24 09/07/24 Range/Units 10:50 04:48 Sodium 136 L 136 L (137-145) mmol/L Potassium 4.1 3.9 (3.5-5.1) mmol/L Chloride 102 104 (98-107) mmol/L Carbon Dioxide 25 24 (22-30) mmol/L BUN 23 H 21 H (9-20) mg/dL Creatinine 1.14 1.11 (0.66-1.25) mg/dL Glucose 146 H 78 (74-99) mg/dL Calcium 8.6 8.4 (8.4-10.2) mg/dL Adrenal panel 09/06/24 09/07/24 Range/Units 10:50 04:48 Sodium 136 L 136 L (137-145) mmol/L Potassium 4.1 3.9 (3.5-5.1) mmol/L Chloride 102 104 (98-107) mmol/L Carbon Dioxide 25 24 (22-30) mmol/L BUN 23 H 21 H (9-20) mg/dL Creatinine 1.14 1.11 (0.66-1.25) mg/dL Glucose 146 H 78 (74-99) mg/dL Calcium 8.6 8.4 (8.4-10.2) mg/dL Total Bilirubin 0.9 0.8 (0.2-1.3) mg/dL AST 19 18 (17-59) U/L ALT 13 11 (4-49) U/L Alkaline Phosphatase 60 56 (38-126) U/L Total Protein 7.0 6.4 (6.3-8.2) g/dL Albumin 3.5 3.1 L (3.5-5.0) g/dL - Imaging CT scan - pelvis: report reviewed, image reviewed Assessment and Plan (1) Scrotal edema Current Visit: Yes Status: Acute Code(s): N50.89 - OTHER SPECIFIED DISORDERS OF THE MALE GENITAL ORGANS SNOMED Code(s): 00480260 (2) Malignant neoplasm of ureteric orifice Current Visit: Yes Status: Acute Code(s): C67.6 - MALIGNANT NEOPLASM OF URETERIC ORIFICE SNOMED Code(s): 643399024 Plan: Continue Rocephin, await urine culture results. Will continue to monitor closely for the development of an abscess. The patient was reassured of the fact that the CT scan showed no upper tract abnormalities. There was evidence of bladder wall thickening, the significance of which is unclear. He should undergo cystoscopy upon discharge to rule out recurrent bladder cancer. Time with Patient: Greater than 30
[2024-09-08 07:19] LABS: African American GFR (CKD) 71 (>60 ml/min/1.73 sqM); Anion Gap 10 mmol/L; Blood Urea Nitrogen 20 mg/dL (9-20); Calcium 8.4 mg/dL (8.4-10.2); Carbon Dioxide 20 mmol/L (22-30); Chloride 106 mmol/L (98-107); Glucose 102 mg/dL (74-99); Non-African American GFR(CKD) 61 (>60 ml/min/1.73 sqM); Potassium 4.1 mmol/L (3.5-5.1); Sodium 136 mmol/L (137-145)
--- NOTE | 2024-09-08 09:13 | P.PN ---
Subjective Progress Note Date: 09/08/24 Principal diagnosis: Left scrotal swelling The patient continues to experience left scrotal discomfort with swelling. His symptoms are essentially unchanged. Objective - Vital Signs Vital signs: Vital Signs Temp 97.6 F 09/08/24 02:00 Pulse 88 09/08/24 02:00 Resp 17 09/08/24 02:00 BP 125/74 09/08/24 02:00 Pulse Ox 95 09/08/24 02:00 FiO2 Intake & Output 09/07/24 09/08/24 09/08/24 18:59 06:59 18:59 Intake Total 458 Balance 458 Intake: Oral 458 Other: Voiding Method Toilet # Voids 2 3 - Constitutional General appearance: Present: average body habitus, cooperative, no acute distress - Genitourinary Genitourinary Comment(s): Moderate penoscrotal edema most prominently involving the left hemiscrotum. Erythema is noted, but no cellulitis. There is no drainage or fluctuance. - Psychiatric Psychiatric: Present: A&O x's 3 - Labs CBC & Chem 7: 09/07/24 04:48 09/08/24 05:44 Labs: Abnormal Lab Results - Last 24 Hours (Table) 09/07/24 09/07/24 09/07/24 Range/Units 04:48 17:14 20:05 WBC 10.22 H (4.50-10.00) X 10*3/uL RBC 4.36 L (4.40-5.60) X 10*6/uL MCV 99.1 H (80.0-97.0) FL MCH 32.6 H (27.0-32.0) pg Immature Gran # 0.06 H (0.00-0.04) X 10*3/uL Monocytes # 1.25 H (0.20-1.00) X 10*3/uL Eosinophils # 0.44 H (0.04-0.35) X 10*3/uL POC Glucose (mg/dL) 120 H 171 H (70-110) mg/dL Microbiology - Last 24 Hours (Table) 09/06/24 16:41 Blood Culture - Preliminary Blood 09/06/24 12:31 Urine Culture - Final Urine,Voided Strep agalactiae - (group b) Leslie albicans Assessment and Plan Assessment: Urine culture shows strep group B and Leslie, the significance of which is unclear. Blood cultures are negative thus far. (1) Scrotal edema Current Visit: Yes Status: Acute Code(s): N50.89 - OTHER SPECIFIED DISORDERS OF THE MALE GENITAL ORGANS SNOMED Code(s): 97137302 (2) Malignant neoplasm of ureteric orifice Current Visit: Yes Status: Acute Code(s): C67.6 - MALIGNANT NEOPLASM OF URETERIC ORIFICE SNOMED Code(s): 878066565 Plan: At this time, the clinical picture is beginning to suggest left epididymitis with secondary scrotal edema. Unfortunately, the urine culture is not very helpful and he may require empiric therapy. I did stress to him the need for office cystoscopy upon discharge.
[2024-09-08 10:10] LABS: Basophils # (A) 0.08 X 10*3/uL (0.00-0.10); Basophils % (A) 0.9 %; Eosinophils % (A) 5.8 %; HCT 43.6 % (39.6-50.0); HGB 13.9 g/dL (13.0-17.0); Lymphocytes # (A) 1.28 X 10*3/uL (0.90-5.00); Lymphocytes % (A) 14.9 %; MCH 32.3 pg (27.0-32.0); MCHC 31.9 g/dL (32.0-37.0); MCV 101.2 FL (80.0-97.0); Mean Platelet Volume 11.5 FL (9.5-12.2); NRBC Per 100 WBC 0 X 10*3/uL (0.00-0.01); Neutrophils # (A) 5.47 X 10*3/uL (1.80-7.70); Neutrophils % (A) 63.8 %; Platelet Count 223 X 10*3/uL (140-440); RBC 4.31 X 10*6/uL (4.40-5.60); RDW 14.1 % (11.5-14.5); WBC 8.58 X 10*3/uL (4.50-10.00)
[2024-09-08] MEDS: SIMETHICONE 80 MG CHEWABLE PO SCH (11:30)
[2024-09-08 12:38] LABS: Glucose,Whole Blood 240 mg/dL (70-110)
--- NOTE | 2024-09-08 13:24 | P.PN ---
Subjective Progress Note Date: 09/08/24 SURGICAL PROGRESS NOTE CHIEF COMPLAINT: Abdominal distention HISTORY OF PRESENT ILLNESS: Patient admitted to the hospital with a UTI and scrotal edema. Surgical service following regards to abdominal pain and left inguinal hernia. Patient reports abdominal distention is decreasing. He is having bowel movements. Tolerating regular diet. He reports that he takes simethicone at home and has not been receiving it here. He reports his left groin hernia is reduced. Only has discomfort with some movement. PHYSICAL EXAM: VITAL SIGNS: Reviewed. GENERAL: Well-developed in no acute distress. ABDOMEN: Soft. Distended. Nontender. Tympanic. Left groin hernia reduced. Soft nontender with palpation. No rebound or guarding noted. NEUROLOGIC: Alert and oriented. Cranial nerves II through XII grossly intact. ASSESSMENT: 1. Abdominal distention resolving 2. Left inguinal hernia PLAN: -No surgical intervention planned at this time -When patient is medically optimized he could be considered for possible outpatient left inguinal hernia repair -Simethicone chews added for gas pains and abdominal distention -Encourage patient to increase activity level Physician Animal Care Attendant note has been reviewed by physician. Signing provider agrees with the documented findings, assessment, and plan of care. Objective - Vital Signs Vital signs: Vital Signs Temp 97.6 F 09/08/24 07:00 Pulse 73 09/08/24 07:00 Resp 18 09/08/24 08:46 BP 154/80 09/08/24 07:00 Pulse Ox 96 09/08/24 07:00 FiO2 Intake & Output 09/07/24 09/08/24 09/08/24 18:59 06:59 18:59 Intake Total 458 118 Balance 458 118 Intake: Oral 458 118 Other: Voiding Method Toilet Toilet # Voids 2 3 - Labs CBC & Chem 7: 09/08/24 05:44 09/08/24 05:44 Labs: Abnormal Lab Results - Last 24 Hours (Table) 09/07/24 09/07/24 09/08/24 Range/Units 17:14 20:05 05:44 RBC (4.40-5.60) X 10*6/uL MCV (80.0-97.0) FL MCH (27.0-32.0) pg MCHC (32.0-37.0) g/dL Immature Gran # (0.00-0.04) X 10*3/uL Monocytes # (0.20-1.00) X 10*3/uL Eosinophils # (0.04-0.35) X 10*3/uL Sodium 136 L (137-145) mmol/L Carbon Dioxide 20 L (22-30) mmol/L Glucose 102 H (74-99) mg/dL POC Glucose (mg/dL) 120 H 171 H (70-110) mg/dL 09/08/24 09/08/24 Range/Units 05:44 12:36 RBC 4.31 L (4.40-5.60) X 10*6/uL MCV 101.2 H (80.0-97.0) FL MCH 32.3 H (27.0-32.0) pg MCHC 31.9 L (32.0-37.0) g/dL Immature Gran # 0.05 H (0.00-0.04) X 10*3/uL Monocytes # 1.20 H (0.20-1.00) X 10*3/uL Eosinophils # 0.50 H (0.04-0.35) X 10*3/uL Sodium (137-145) mmol/L Carbon Dioxide (22-30) mmol/L Glucose (74-99) mg/dL POC Glucose (mg/dL) 240 H (70-110) mg/dL Microbiology - Last 24 Hours (Table) 09/06/24 16:41 Blood Culture - Preliminary Blood 09/06/24 12:31 Urine Culture - Final Urine,Voided Strep agalactiae - (group b) Leslie albicans
--- NOTE | 2024-09-08 16:14 | P.PN ---
Subjective Progress Note Date: 09/08/24 Principal diagnosis: Reason for follow-up is groin cellulitis Patient is a 84-year-old male with a past medical history significant for diabetes mellitus hypertension hyperlipidemia and prostate disorder, patient has been brought to the hospital for evaluation of left-sided groin pain has been diagnosed with a cellulitis CT and ultrasound was negative for any abscess. On today's evaluation that is 09/08/2024, the patient continues to be afebrile, the patient is on room air and breathing comfortably, the Pt denies having any chest pain or cough, the patient denies having any abdominal pain no vomiting or any diarrhea pain to the point has decreased in intensity. Patient white count normalized to 8.58, creatinine 1.11 urine is growing group be strep and Leslie blood culture have been negative so far Objective - Vital Signs Vital signs: Vital Signs Temp 97.6 F 09/08/24 07:00 Pulse 73 09/08/24 07:00 Resp 18 09/08/24 08:46 BP 154/80 09/08/24 07:00 Pulse Ox 96 09/08/24 07:00 FiO2 Intake & Output 09/07/24 09/08/24 09/08/24 18:59 06:59 18:59 Intake Total 458 118 Balance 458 118 Intake: Oral 458 118 Other: Voiding Method Toilet Toilet # Voids 2 3 - Exam GENERAL DESCRIPTION: An elderly male lying in bed in no distress RESPIRATORY SYSTEM: Unlabored breathing , decreased breath sounds at bases HEART: S1 S2 regular rate and rhythm , ABDOMEN: Soft , no tenderness, left groin and scrotal area erythema has decreased EXTREMITIES: No edema feet - Labs CBC & Chem 7: 09/08/24 05:44 09/08/24 05:44 Labs: Abnormal Lab Results - Last 24 Hours (Table) 09/07/24 09/07/24 09/08/24 Range/Units 17:14 20:05 05:44 RBC (4.40-5.60) X 10*6/uL MCV (80.0-97.0) FL MCH (27.0-32.0) pg MCHC (32.0-37.0) g/dL Immature Gran # (0.00-0.04) X 10*3/uL Monocytes # (0.20-1.00) X 10*3/uL Eosinophils # (0.04-0.35) X 10*3/uL Sodium 136 L (137-145) mmol/L Carbon Dioxide 20 L (22-30) mmol/L Glucose 102 H (74-99) mg/dL POC Glucose (mg/dL) 120 H 171 H (70-110) mg/dL 09/08/24 09/08/24 Range/Units 05:44 12:36 RBC 4.31 L (4.40-5.60) X 10*6/uL MCV 101.2 H (80.0-97.0) FL MCH 32.3 H (27.0-32.0) pg MCHC 31.9 L (32.0-37.0) g/dL Immature Gran # 0.05 H (0.00-0.04) X 10*3/uL Monocytes # 1.20 H (0.20-1.00) X 10*3/uL Eosinophils # 0.50 H (0.04-0.35) X 10*3/uL Sodium (137-145) mmol/L Carbon Dioxide (22-30) mmol/L Glucose (74-99) mg/dL POC Glucose (mg/dL) 240 H (70-110) mg/dL Microbiology - Last 24 Hours (Table) 09/06/24 16:41 Blood Culture - Preliminary Blood 09/06/24 12:31 Urine Culture - Final Urine,Voided Strep agalactiae - (group b) Leslie albicans Assessment and Plan (1) Cellulitis of left groin Current Visit: Yes Status: Acute Code(s): L03.314 - CELLULITIS OF GROIN SNOMED Code(s): 23867619 (2) Cellulitis of scrotum Current Visit: Yes Status: Acute Code(s): N49.2 - INFLAMMATORY DISORDERS OF SCROTUM SNOMED Code(s): 24494288 (3) UTI (urinary tract infection) Current Visit: Yes Status: Acute Code(s): N39.0 - URINARY TRACT INFECTION, SITE NOT SPECIFIED SNOMED Code(s): 37518916 Plan: 1patient presented hospital acute pain to the left groin area with evidence of swelling as well as redness concerning for cellulitis likely from gram-positive skin zofia, gram-negative infection not entirely excluded, patient did have CT as well as ultrasound did not mention any abscess 2significant abnormality of the bladder on the CT along with positive UA and urinary symptom difficulty urination and some burning concerning for UTI likely from UTI gram-negative pathogen, urine is growing group B strep and Leslie 3patient will be treated with the Rocephin 2 g daily will add Diflucan discontinue vancomycin and monitor clinical course closely Dictation was produced using [employer] dictation software. please excuse any grammatical, word or spelling errors.
[2024-09-08] MEDS: FLUCONAZOLE 150 MG TAB PO SCH (16:49)
[2024-09-08] MEDS: KETOROLAC 15 MG/ML 1 ML VIAL IVP SCH (16:49)
[2024-09-08 17:12] LABS: Glucose,Whole Blood 142 mg/dL (70-110)
[2024-09-08 19:50] LABS: Glucose,Whole Blood 169 mg/dL (70-110)
--- NOTE | 2024-09-09 02:03 | PN ---
PROGRESS NOTE DATE OF SERVICE: 09/08/2024 SUBJECTIVE: This 84-year-old gentleman admitted with bilateral scrotal cellulitis and hydroceles, and also had some ideas also. The patient was suspected for chronic liver disease status. Multiple consultants were following the patient closely. Cultures, urine culture showed Strep agalactiae group B and Leslie albicans. PAST MEDICAL HISTORY: Reviewed. REVIEW OF SYSTEMS: A 14-point review of systems is negative except as mentioned earlier. CURRENT MEDICATIONS: Reviewed. PHYSICAL EXAMINATION: VITAL SIGNS: Pulse 73, blood pressure 150/80, and respirations 18. CHEST: Clear to auscultation. CARDIOVASCULAR: S1, S2. ABDOMEN: Soft and obese. LEGS: No edema. No swelling. Scrotal cellulitis present. LABORATORY DATA: Noted. ASSESSMENT: 1. Acute bilateral scrotal cellulitis with hydrocele with possible sepsis, severe pain, and present on admission. 2. Possible acute urinary tract infection with Strep agalactiae and Leslie albicans. 3. Abdomen distention, possibly ileus. 4. Rule out chronic liver disease. 5. Chronic obstructive pulmonary disease. 6. Hypertension. 7. Hyperlipidemia. 8. Diabetes type 2. 9. History of bladder cancer. 10.History of nicotine dependence. 11.History of EtOH. RECOMMENDATIONS: Recommend to continue current management and continue symptomatic treatment. Continue the broad-spectrum IV antibiotics. The patient is on Rocephin. Otherwise, I would add Diflucan to the current regimen. Continue to monitor. Guarded prognosis. Further recommendations to follow. MMODL / IJN: [id number] /
[2024-09-09 05:51] LABS: Glucose,Whole Blood 103 mg/dL (70-110)
[2024-09-09 09:59] LABS: Basophils # (A) 0.08 X 10*3/uL (0.00-0.10); Eosinophils # (A) 0.52 X 10*3/uL (0.04-0.35); Eosinophils % (A) 6.4 %; HCT 42.5 % (39.6-50.0); HGB 13.6 g/dL (13.0-17.0); Lymphocytes # (A) 1.02 X 10*3/uL (0.90-5.00); Lymphocytes % (A) 12.5 %; MCH 32.5 pg (27.0-32.0); MCV 101.4 FL (80.0-97.0); Mean Platelet Volume 11.2 FL (9.5-12.2); Monocytes # (A) 1.17 X 10*3/uL (0.20-1.00); Monocytes % (A) 14.3 %; NRBC Per 100 WBC 0 X 10*3/uL (0.00-0.01); Neutrophils # (A) 5.34 X 10*3/uL (1.80-7.70); Neutrophils % (A) 65.4 %; Platelet Count 247 X 10*3/uL (140-440); RBC 4.19 X 10*6/uL (4.40-5.60); RDW 14.3 % (11.5-14.5); WBC 8.16 X 10*3/uL (4.50-10.00)
[2024-09-09] MEDS ORDERED: VANCOMYCIN TROUGH DUE 1 EACH MISC MISCELLANE ONE (10:00)
[2024-09-09 10:23] LABS: ALT 9 U/L (10-49); AST 13 U/L (14-35); Albumin 3.2 g/dL (3.8-4.9); Albumin/Globulin Ratio 1.03 Ratio (1.60-3.17); Alkaline Phosphatase 51 U/L (41-126); BUN/Creat Ratio 16.29 Ratio (12.00-20.00); Blood Urea Nitrogen 22.8 mg/dL (9.0-27.0); Calcium 8.6 mg/dL (8.7-10.3); Carbon Dioxide 22.3 mmol/L (21.6-31.8); Chloride 107 mmol/L (96-109); Globulin 3.1 g/dL (1.6-3.3); Glucose 121 mg/dL (70-110); Potassium 4.1 mmol/L (3.5-5.5); Sodium 141 mmol/L (135-145); Total Bilirubin 0.2 mg/dL (0.3-1.2); Total Protein 6.3 g/dL (6.2-8.2)
--- NOTE | 2024-09-09 10:23 | P.PN ---
Subjective Progress Note Date: 09/09/24 Principal diagnosis: Left groin pain Patient says he is feeling better. Remains mildly bloated however improved. The pain in his left groin that was quite severe 2 days ago was absent. He has not had a bowel movement in the last few days. He did have some hematuria this morning. CAT scan showed a left inguinal hernia as well as some bladder wall thickening. Objective - Vital Signs Vital signs: Vital Signs Temp 98.3 F 09/09/24 07:00 Pulse 70 09/09/24 07:00 Resp 16 09/09/24 08:36 BP 155/85 09/09/24 07:00 Pulse Ox 94 L 09/09/24 07:00 FiO2 Intake & Output 09/08/24 09/09/24 09/09/24 18:59 06:59 18:59 Intake Total 336 Balance 336 Intake: Oral 336 Other: Voiding Method Toilet Toilet Toilet # Voids 1 1 - Exam Abdomen: Soft, nontender, nondistended, no definite palpable hernia although difficult in the supine position. - Labs CBC & Chem 7: 09/09/24 04:42 09/08/24 05:44 Labs: Abnormal Lab Results - Last 24 Hours (Table) 09/08/24 09/08/24 09/08/24 Range/Units 12:36 17:10 19:48 RBC (4.40-5.60) X 10*6/uL MCV (80.0-97.0) FL MCH (27.0-32.0) pg Monocytes # (0.20-1.00) X 10*3/uL Eosinophils # (0.04-0.35) X 10*3/uL POC Glucose (mg/dL) 240 H 142 H 169 H (70-110) mg/dL 09/09/24 Range/Units 04:42 RBC 4.19 L (4.40-5.60) X 10*6/uL MCV 101.4 H (80.0-97.0) FL MCH 32.5 H (27.0-32.0) pg Monocytes # 1.17 H (0.20-1.00) X 10*3/uL Eosinophils # 0.52 H (0.04-0.35) X 10*3/uL POC Glucose (mg/dL) (70-110) mg/dL Microbiology - Last 24 Hours (Table) 09/06/24 16:41 Blood Culture - Preliminary Blood Assessment and Plan (1) Left groin pain Narrative/Plan: 84-year-old male with pain left groin which is improved. Etiology unclear but certainly could be related to the left inguinal hernia being temporarily incarcerated or more symptomatic. Difficult to palpate with certainty on exam in the supine position. Patient did have some hematuria today. Consider u rology consult. Will add stool softeners for constipation. Continue diet as tolerated. Current Visit: Yes Status: Acute Code(s): R10.32 - LEFT LOWER QUADRANT PAIN SNOMED Code(s): 49498046127120478
[2024-09-09] MEDS: LACTULOSE 20 GM/30 ML CUP PO SCH (11:05)
--- NOTE | 2024-09-09 11:26 | P.PN ---
Subjective Progress Note Date: 09/09/24 Principal diagnosis: Left scrotal swelling The patient continues to experience left scrotal swelling, but states that his associated pain is improved. He did note some terminal stream hematuria this morning. Objective - Vital Signs Vital signs: Vital Signs Temp 97.5 F L 09/09/24 01:45 Pulse 68 09/09/24 01:45 Resp 16 09/09/24 01:45 BP 153/78 09/09/24 01:45 Pulse Ox 96 09/09/24 01:45 FiO2 Intake & Output 09/08/24 09/09/24 09/09/24 18:59 06:59 18:59 Intake Total 336 Balance 336 Intake: Oral 336 Other: Voiding Method Toilet Toilet # Voids 1 1 - Constitutional General appearance: Present: average body habitus, cooperative, no acute distress - Genitourinary Genitourinary Comment(s): Persistent penile edema and scrotal edema, predominantly left-sided. The right testy is palpably normal. The left testy is somewhat enlarged and tender. There is no cellulitis, fluctuance, or drainage. - Psychiatric Psychiatric: Present: A&O x's 3 - Labs CBC & Chem 7: 09/09/24 04:42 09/09/24 04:42 Labs: Abnormal Lab Results - Last 24 Hours (Table) 09/08/24 09/08/24 09/08/24 Range/Units 05:44 05:44 12:36 RBC 4.31 L (4.40-5.60) X 10*6/uL MCV 101.2 H (80.0-97.0) FL MCH 32.3 H (27.0-32.0) pg MCHC 31.9 L (32.0-37.0) g/dL Immature Gran # 0.05 H (0.00-0.04) X 10*3/uL Monocytes # 1.20 H (0.20-1.00) X 10*3/uL Eosinophils # 0.50 H (0.04-0.35) X 10*3/uL Sodium 136 L (137-145) mmol/L Carbon Dioxide 20 L (22-30) mmol/L Glucose 102 H (74-99) mg/dL POC Glucose (mg/dL) 240 H (70-110) mg/dL 09/08/24 09/08/24 Range/Units 17:10 19:48 RBC (4.40-5.60) X 10*6/uL MCV (80.0-97.0) FL MCH (27.0-32.0) pg MCHC (32.0-37.0) g/dL Immature Gran # (0.00-0.04) X 10*3/uL Monocytes # (0.20-1.00) X 10*3/uL Eosinophils # (0.04-0.35) X 10*3/uL Sodium (137-145) mmol/L Carbon Dioxide (22-30) mmol/L Glucose (74-99) mg/dL POC Glucose (mg/dL) 142 H 169 H (70-110) mg/dL Microbiology - Last 24 Hours (Table) 09/06/24 16:41 Blood Culture - Preliminary Blood Assessment and Plan Assessment: Urine culture shows strep group B and Leslie, the significance of which is unclear. Blood cultures are negative thus far. (1) Scrotal edema Current Visit: Yes Status: Acute Code(s): N50.89 - OTHER SPECIFIED DISORDERS OF THE MALE GENITAL ORGANS SNOMED Code(s): 54845220 (2) Malignant neoplasm of ureteric orifice Current Visit: Yes Status: Acute Code(s): C67.6 - MALIGNANT NEOPLASM OF URETERIC ORIFICE SNOMED Code(s): 691369965 Plan: I suspect that the patient has left epididymitis with secondary scrotal edema, and his condition is improving. He remains afebrile, and his leukocytosis has resolved. It would be my recommendation that he be discharged home on broad-spectrum oral antibiotics. I have asked him to contact my office to schedule office cystoscopy upon discharge.
[2024-09-09 12:08] LABS: Glucose,Whole Blood 135 mg/dL (70-110)
[2024-09-09] MEDS: amLODIPine 10 MG TAB PO SCH (15:40)
--- NOTE | 2024-09-09 15:42 | P.PN ---
Subjective Progress Note Date: 09/09/24 Principal diagnosis: Reason for follow-up is groin cellulitis Patient is a 84-year-old male with a past medical history significant for diabetes mellitus hypertension hyperlipidemia and prostate disorder, patient has been brought to the hospital for evaluation of left-sided groin pain has been diagnosed with a cellulitis CT and ultrasound was negative for any abscess. On today's evaluation that is 09/09/2024, patient did not have any fever and denies any chills, patient is breathing comfortably on room air, patient with no chest pain or cough patient did not have any abdominal pain nausea vomiting or any loose stools pain to the left groin and scrotal area has decreased. Patient white count is normal at 8.16 creatinine is 1.4 blood cultures pending Objective - Vital Signs Vital signs: Vital Signs Temp 97.4 F L 09/09/24 14:25 Pulse 75 09/09/24 15:39 Resp 16 09/09/24 14:25 BP 167/88 09/09/24 15:39 Pulse Ox 96 09/09/24 15:39 FiO2 Intake & Output 09/08/24 09/09/24 09/09/24 18:59 06:59 18:59 Intake Total 336 Balance 336 Intake: Oral 336 Other: Voiding Method Toilet Toilet Toilet # Voids 1 1 3 - Exam GENERAL DESCRIPTION: An elderly male lying in bed in no distress RESPIRATORY SYSTEM: Unlabored breathing , decreased breath sounds at bases HEART: S1 S2 regular rate and rhythm , ABDOMEN: Soft , no tenderness, left groin and scrotal area erythema has decreased EXTREMITIES: No edema feet - Labs CBC & Chem 7: 09/09/24 04:42 09/09/24 04:42 Labs: Abnormal Lab Results - Last 24 Hours (Table) 09/08/24 09/08/24 09/09/24 Range/Units 17:10 19:48 04:42 RBC 4.19 L (4.40-5.60) X 10*6/uL MCV 101.4 H (80.0-97.0) FL MCH 32.5 H (27.0-32.0) pg Monocytes # 1.17 H (0.20-1.00) X 10*3/uL Eosinophils # 0.52 H (0.04-0.35) X 10*3/uL Est GFR (CKD-EPI) (>=60) Glucose (70-110) mg/dL POC Glucose (mg/dL) 142 H 169 H (70-110) mg/dL Calcium (8.7-10.3) mg/dL Total Bilirubin (0.3-1.2) mg/dL AST (14-35) U/L ALT (10-49) U/L Albumin (3.8-4.9) g/dL Albumin/Globulin Ratio (1.60-3.17) Ratio 09/09/24 09/09/24 Range/Units 04:42 12:07 RBC (4.40-5.60) X 10*6/uL MCV (80.0-97.0) FL MCH (27.0-32.0) pg Monocytes # (0.20-1.00) X 10*3/uL Eosinophils # (0.04-0.35) X 10*3/uL Est GFR (CKD-EPI) 50 L (>=60) Glucose 121 H (70-110) mg/dL POC Glucose (mg/dL) 135 H (70-110) mg/dL Calcium 8.6 L (8.7-10.3) mg/dL Total Bilirubin 0.2 L (0.3-1.2) mg/dL AST 13 L (14-35) U/L ALT 9 L (10-49) U/L Albumin 3.2 L (3.8-4.9) g/dL Albumin/Globulin Ratio 1.03 L (1.60-3.17) Ratio Microbiology - Last 24 Hours (Table) 09/06/24 16:41 Blood Culture - Preliminary Blood Assessment and Plan (1) Cellulitis of left groin Current Visit: Yes Status: Acute Code(s): L03.314 - CELLULITIS OF GROIN SNOMED Code(s): 50199048 (2) Cellulitis of scrotum Current Visit: Yes Status: Acute Code(s): N49.2 - INFLAMMATORY DISORDERS OF SCROTUM SNOMED Code(s): 25753036 (3) UTI (urinary tract infection) Current Visit: Yes Status: Acute Code(s): N39.0 - URINARY TRACT INFECTION, SITE NOT SPECIFIED SNOMED Code(s): 16186281 Plan: 1patient presented hospital acute pain to the left groin area with evidence of swelling as well as redness concerning for cellulitis likely from gram-positive skin zofia, gram-negative infection not entirely excluded, patient did have CT as well as ultrasound did not mention any abscess 2significant abnormality of the bladder on the CT along with positive UA and urinary symptom difficulty urination and some burning concerning for UTI likely from UTI gram-negative pathogen, urine is growing group B strep and Leslie 3patient is afebrile and the patient white count has normalized, patient curr ently being treated Rocephin 2 g daily and Diflucan , will monitor clinical course closely Multiple question concern answered Dictation was produced using [employer] dictation software. please excuse any grammatical, word or spelling errors. Time with Patient: Less than 30
[2024-09-09 17:08] LABS: Glucose,Whole Blood 128 mg/dL (70-110)
[2024-09-09 19:54] LABS: Glucose,Whole Blood 188 mg/dL (70-110)
--- NOTE | 2024-09-10 04:48 | PN ---
PROGRESS NOTE DATE OF SERVICE: 09/09/2024 SUBJECTIVE: This is an 84-year-old gentleman admitted with bilateral scrotal cellulitis and hydrocele. He is on antibiotics. No chest pain. No palpitations. Improving slowly. PHYSICAL EXAMINATION: VITAL SIGNS: Pulse 90, blood pressure 162/83, respirations 16. CHEST: Clear to auscultation. CARDIOVASCULAR: S1 and S2. ABDOMEN: Soft. GENITOURINARY: Scrotal cellulitis and hydrocele present. LABORATORY DATA: Labs are reviewed. ASSESSMENT: 1. Acute bilateral scrotal cellulitis with hydrocele with possible sepsis, severe pain, present on admission. 2. Acute urinary tract infection with Strep agalactiae and Leslie albicans. 3. Abdominal distention, possibly ileus. 4. Multiple complex medical issues. Please refer to the previous chart. RECOMMENDATIONS: I recommend to continue current medications, continue symptomatic treatment. Otherwise, continue the antibiotic and continue symptomatic treatment antifungals. Closely follow with multiple consultants. Further recommendations to follow. MMODL / IJN: [id number] /
[2024-09-10 05:20] LABS: Glucose,Whole Blood 135 mg/dL (70-110)
--- NOTE | 2024-09-10 09:29 | P.PN ---
Subjective Progress Note Date: 09/10/24 Principal diagnosis: Left groin pain Patient doing well today. Says he did not sleep well but has no pain. Tolerating diet. No nausea or vomiting. Objective - Vital Signs Vital signs: Vital Signs Temp 97.3 F L 09/10/24 07:01 Pulse 83 09/10/24 07:01 Resp 18 09/10/24 07:01 BP 168/89 09/10/24 07:01 Pulse Ox 95 09/10/24 07:01 FiO2 Intake & Output 09/09/24 09/10/24 09/10/24 18:59 06:59 18:59 Other: Voiding Method Toilet Toilet Toilet # Voids 3 1 - Exam Abdomen: Soft, nontender, nondistended, no definite palpable hernia although difficult in the supine position. - Labs CBC & Chem 7: 09/09/24 04:42 09/09/24 04:42 Labs: Abnormal Lab Results - Last 24 Hours (Table) 09/09/24 09/09/24 09/09/24 Range/Units 04:42 04:42 12:07 RBC 4.19 L (4.40-5.60) X 10*6/uL MCV 101.4 H (80.0-97.0) FL MCH 32.5 H (27.0-32.0) pg Monocytes # 1.17 H (0.20-1.00) X 10*3/uL Eosinophils # 0.52 H (0.04-0.35) X 10*3/uL Est GFR (CKD-EPI) 50 L (>=60) Glucose 121 H (70-110) mg/dL POC Glucose (mg/dL) 135 H (70-110) mg/dL Calcium 8.6 L (8.7-10.3) mg/dL Total Bilirubin 0.2 L (0.3-1.2) mg/dL AST 13 L (14-35) U/L ALT 9 L (10-49) U/L Albumin 3.2 L (3.8-4.9) g/dL Albumin/Globulin Ratio 1.03 L (1.60-3.17) Ratio 09/09/24 09/09/24 09/10/24 Range/Units 17:06 19:52 05:18 RBC (4.40-5.60) X 10*6/uL MCV (80.0-97.0) FL MCH (27.0-32.0) pg Monocytes # (0.20-1.00) X 10*3/uL Eosinophils # (0.04-0.35) X 10*3/uL Est GFR (CKD-EPI) (>=60) Glucose (70-110) mg/dL POC Glucose (mg/dL) 128 H 188 H 135 H (70-110) mg/dL Calcium (8.7-10.3) mg/dL Total Bilirubin (0.3-1.2) mg/dL AST (14-35) U/L ALT (10-49) U/L Albumin (3.8-4.9) g/dL Albumin/Globulin Ratio (1.60-3.17) Ratio Microbiology - Last 24 Hours (Table) 09/06/24 16:41 Blood Culture - Preliminary Blood Assessment and Plan (1) Left groin pain Narrative/Plan: Patient with left groin discomfort. Urology notes reviewed. Suspected left epididymitis with secondary scrotal swelling. Symptoms improved. Continue antibiotics per their recommendations. May discharge from our standpoint. Current Visit: Yes Status: Acute Code(s): R10.32 - LEFT LOWER QUADRANT PAIN SNOMED Code(s): 89377585851506842
--- NOTE | 2024-09-10 11:45 | P.PN ---
Subjective Progress Note Date: 09/10/24 Principal diagnosis: Left scrotal swelling The patient continues to experience left scrotal swelling, but states that his associated pain has resolved. He continues to receive Rocephin. Objective - Vital Signs Vital signs: Vital Signs Temp 97.3 F L 09/10/24 07:01 Pulse 83 09/10/24 07:01 Resp 18 09/10/24 07:01 BP 168/89 09/10/24 07:01 Pulse Ox 95 09/10/24 07:01 FiO2 Intake & Output 09/09/24 09/10/24 09/10/24 18:59 06:59 18:59 Other: Voiding Method Toilet Toilet Toilet # Voids 3 1 - Constitutional General appearance: Present: average body habitus, cooperative, no acute distress - Genitourinary Genitourinary Comment(s): Penile edema is noted. The scrotal edema, which is predominantly left-sided, is diminished. The left testicle is enlarged but less tender. There is no drainage, cellulitis, or fluctuance. - Psychiatric Psychiatric: Present: A&O x's 3 - Labs CBC & Chem 7: 09/09/24 04:42 09/09/24 04:42 Labs: Abnormal Lab Results - Last 24 Hours (Table) 09/09/24 09/09/24 09/09/24 Range/Units 12:07 17:06 19:52 POC Glucose (mg/dL) 135 H 128 H 188 H (70-110) mg/dL 09/10/24 Range/Units 05:18 POC Glucose (mg/dL) 135 H (70-110) mg/dL Microbiology - Last 24 Hours (Table) 09/06/24 16:41 Blood Culture - Preliminary Blood Assessment and Plan Assessment: Urine culture shows strep group B and Leslie, the significance of which is unclear. Blood cultures are negative thus far. (1) Scrotal edema Current Visit: Yes Status: Acute Code(s): N50.89 - OTHER SPECIFIED DISORDERS OF THE MALE GENITAL ORGANS SNOMED Code(s): 91623896 (2) Malignant neoplasm of ureteric orifice Current Visit: Yes Status: Acute Code(s): C67.6 - MALIGNANT NEOPLASM OF URETERIC ORIFICE SNOMED Code(s): 531838455 Plan: I suspect that the patient has left epididymitis with secondary scrotal edema, and his condition is improving. He remains afebrile, and his leukocytosis has resolved. It would be my recommendation that he be discharged home on broad- spectrum oral antibiotics. I have asked him to contact my office to schedule office cystoscopy upon discharge. Please notify us if we can be of any further assistance during this hospitalization.
[2024-09-10 12:16] LABS: Glucose,Whole Blood 157 mg/dL (70-110)
--- NOTE | 2024-09-10 16:36 | P.PN ---
Subjective Progress Note Date: 09/10/24 Principal diagnosis: Reason for follow-up is groin cellulitis Patient is a 84-year-old male with a past medical history significant for diabetes mellitus hypertension hyperlipidemia and prostate disorder, patient has been brought to the hospital for evaluation of left-sided groin pain has been diagnosed with a cellulitis CT and ultrasound was negative for any abscess. On today's evaluation that is 09/10/2024, Patient is afebrile patient is currently on room air and denies having any shortness of breath, the patient denies any chest pain or cough, the patient denies any nausea vomiting did not have any abdominal pain and no diarrhea, pain to the left groin has decreased in intensity. No new lab has been obtained today Objective - Vital Signs Vital signs: Vital Signs Temp 97.3 F L 09/10/24 07:01 Pulse 83 09/10/24 07:01 Resp 18 09/10/24 07:01 BP 168/89 09/10/24 07:01 Pulse Ox 95 09/10/24 07:01 FiO2 Intake & Output 09/09/24 09/10/24 09/10/24 18:59 06:59 18:59 Other: Voiding Method Toilet Toilet Toilet # Voids 3 1 - Exam GENERAL DESCRIPTION: An elderly male lying in bed in no distress RESPIRATORY SYSTEM: Unlabored breathing , decreased breath sounds at bases HEART: S1 S2 regular rate and rhythm , ABDOMEN: Soft , no tenderness, left groin and scrotal area erythema has decreased EXTREMITIES: No edema feet - Labs CBC & Chem 7: 09/09/24 04:42 09/09/24 04:42 Labs: Abnormal Lab Results - Last 24 Hours (Table) 09/09/24 09/09/24 09/10/24 Range/Units 17:06 19:52 05:18 POC Glucose (mg/dL) 128 H 188 H 135 H (70-110) mg/dL 09/10/24 Range/Units 12:07 POC Glucose (mg/dL) 157 H (70-110) mg/dL Microbiology - Last 24 Hours (Table) 09/06/24 16:41 Blood Culture - Preliminary Blood Assessment and Plan (1) Cellulitis of left groin Current Visit: Yes Status: Acute Code(s): L03.314 - CELLULITIS OF GROIN SNOMED Code(s): 91001284 (2) Cellulitis of scrotum Current Visit: Yes Status: Acute Code(s): N49.2 - INFLAMMATORY DISORDERS OF SCROTUM SNOMED Code(s): 02254843 (3) UTI (urinary tract infection) Current Visit: Yes Status: Acute Code(s): N39.0 - URINARY TRACT INFECTION, SITE NOT SPECIFIED SNOMED Code(s): 79771451 Plan: 1patient presented hospital acute pain to the left groin area with evidence of swelling as well as redness concerning for cellulitis likely from gram-positive skin zofia, gram-negative infection not entirely excluded, patient did have CT as well as ultrasound did not mention any abscess 2significant abnormality of the bladder on the CT along with positive UA and urinary symptom difficulty urination and some burning concerning for UTI likely from UTI gram-negative pathogen, urine is growing group B strep and Leslie 3patient is afebrile and the patient white count has normalized, 4patient currently being treated Rocephin 2 g daily and Diflucan , will transition to oral Ceftin and Diflucan on discharge Son at the bedside question concern answered Dictation was produced using [employer] dictation software. please excuse any grammatical, word or spelling errors. Time with Patient: Less than 30
[2024-09-10] MEDS: cloNIDine HCL 0.1 MG TAB PO PRN (16:50)
[2024-09-10] MEDS: guaiFENesin SYRUP 100MG/5ML 200 MG/10 ML CUP PO PRN (16:50)
[2024-09-10 17:34] LABS: Glucose,Whole Blood 157 mg/dL (70-110)
[2024-09-10 20:33] LABS: Glucose,Whole Blood 214 mg/dL (70-110)
--- NOTE | 2024-09-10 21:54 | PN ---
PROGRESS NOTE DATE OF SERVICE: 09/10/2024 SUBJECTIVE: This 84-year-old gentleman admitted with acute bilateral scrotal cellulitis and hydrocele is improving significantly. No chest pain or palpitation. PHYSICAL EXAMINATION: VITAL SIGNS: Pulse is 83, blood pressure 168/89. CHEST: Clear to auscultation. CARDIOVASCULAR: S1, S2. ABDOMEN: Soft. Mild distention. Scrotal swelling is improving. LABORATORY DATA: Noted. White count is normal. ASSESSMENT: 1. Acute bilateral scrotal cellulitis with hydrocele with possible sepsis, severe pain present on admission. 2. Acute urinary tract infection with Streptococcal agalactiae and Leslie albicans. 3. Abdomen distention, possibly ileus. 4. Multiple complex medical issues. Please refer to the previous chart. RECOMMENDATIONS: Recommend to continue current medications and continue symptomatic treatment. Continue the antibiotics. Repeat labs. Possibly discharge in the next 24 hours. Closely follow. MMODL / IJN: [id number] /
[2024-09-11 05:44] LABS: Glucose,Whole Blood 120 mg/dL (70-110)
[2024-09-11 07:43] VITALS: BP 153/89; PULSE 72; RESP 17; TEMP 97.4
[2024-09-11 08:43] LABS: Basophils # (A) 0.08 X 10*3/uL (0.00-0.10); Eosinophils # (A) 0.44 X 10*3/uL (0.04-0.35); Eosinophils % (A) 5.7 %; HCT 43.6 % (39.6-50.0); HGB 14.2 g/dL (13.0-17.0); Lymphocytes # (A) 0.97 X 10*3/uL (0.90-5.00); Lymphocytes % (A) 12.6 %; MCH 32.3 pg (27.0-32.0); MCHC 32.6 g/dL (32.0-37.0); MCV 99.3 FL (80.0-97.0); Mean Platelet Volume 11.3 FL (9.5-12.2); NRBC Per 100 WBC 0 X 10*3/uL (0.00-0.01); Neutrophils % (A) 67.4 %; Platelet Count 266 X 10*3/uL (140-440); RBC 4.39 X 10*6/uL (4.40-5.60); RDW 13.7 % (11.5-14.5); WBC 7.71 X 10*3/uL (4.50-10.00)
[2024-09-11 08:48] LABS: BUN/Creat Ratio 16.09 Ratio (12.00-20.00); Blood Urea Nitrogen 17.7 mg/dL (9.0-27.0); Calcium 9.6 mg/dL (8.7-10.3); Carbon Dioxide 19.9 mmol/L (21.6-31.8); Chloride 106 mmol/L (96-109); Glucose 125 mg/dL (70-110); Potassium 4.6 mmol/L (3.5-5.5); Sodium 138 mmol/L (135-145)
[2024-09-11 12:18] LABS: Glucose,Whole Blood 158 mg/dL (70-110)
--- NOTE | 2024-09-11 13:16 | P.PN ---
Subjective Progress Note Date: 09/11/24 SURGICAL PROGRESS NOTE CHIEF COMPLAINT: Abdominal distention HISTORY OF PRESENT ILLNESS: Patient admitted to the hospital with left epididymitis and scrotal edema. Patient denies any pain in the left groin. Denies any nausea or vomiting. Reports having bowel movements and flatus. Does report abdomen is distended. But feels that it is less distended than on admission. Afebrile. WBC 7.71 PHYSICAL EXAM: VITAL SIGNS: Reviewed. GENERAL: Well-developed in no acute distress. ABDOMEN: Soft. Distended. Nontender. Tympanic. No evidence of left inguinal hernia NEUROLOGIC: Alert and oriented. Cranial nerves II through XII grossly intact. ASSESSMENT: 1. Abdominal distention and ileus improving 2. Left inguinal hernia PLAN: -No surgical intervention planned at this time -Recommend left inguinal hernia repair outpatient -Encourage patient to increase activity level -Continue lactulose -Patient can be discharged from surgical standpoint Physician [employer] note has been reviewed by physician. Signing provider agrees with the documented findings, assessment, and plan of care. Objective - Vital Signs Vital signs: Vital Signs Temp 97.4 F L 09/11/24 07:00 Pulse 72 09/11/24 07:00 Resp 17 09/11/24 07:00 BP 153/89 09/11/24 07:00 Pulse Ox 97 09/11/24 07:00 FiO2 Intake & Output 09/10/24 09/11/24 09/11/24 18:59 06:59 18:59 Intake Total 118 Balance 118 Intake: Oral 118 Other: Voiding Method Toilet # Voids 2 3 - Labs CBC & Chem 7: 09/11/24 05:25 09/11/24 05:25 Labs: Abnormal Lab Results - Last 24 Hours (Table) 09/10/24 09/10/24 09/11/24 Range/Units 17:31 20:31 05:25 RBC 4.39 L (4.40-5.60) X 10*6/uL MCV 99.3 H (80.0-97.0) FL MCH 32.3 H (27.0-32.0) pg Eosinophils # 0.44 H (0.04-0.35) X 10*3/uL Carbon Dioxide (21.6-31.8) mmol/L Anion Gap (4.00-12.00) mmol/L Glucose (70-110) mg/dL POC Glucose (mg/dL) 157 H 214 H (70-110) mg/dL 09/11/24 09/11/24 09/11/24 Range/Units 05:25 05:41 12:16 RBC (4.40-5.60) X 10*6/uL MCV (80.0-97.0) FL MCH (27.0-32.0) pg Eosinophils # (0.04-0.35) X 10*3/uL Carbon Dioxide 19.9 L (21.6-31.8) mmol/L Anion Gap 12.10 H (4.00-12.00) mmol/L Glucose 125 H (70-110) mg/dL POC Glucose (mg/dL) 120 H 158 H (70-110) mg/dL
--- NOTE | 2024-09-12 13:44 | P.PN ---
Subjective Progress Note Date: 09/11/24 Principal diagnosis: Reason for follow-up is groin cellulitis Patient is a 84-year-old male with a past medical history significant for diabetes mellitus hypertension hyperlipidemia and prostate disorder, patient has been brought to the hospital for evaluation of left-sided groin pain has been diagnosed with a cellulitis CT and ultrasound was negative for any abscess. On today's evaluation that is 09/11/2024, patient has been afebrile, patient is breathing comfortably and is currently on room air, patient denies having any significant cough no chest pain, patient denies nausea vomiting or diarrhea and no abdominal pain and pain to the left groin has decreased in intensity. The patient white count 7.71 creatinine is 1.1 blood culture has been negative Objective - Vital Signs Vital signs: Vital Signs Temp 97.4 F L 09/11/24 07:00 Pulse 72 09/11/24 07:00 Resp 17 09/11/24 07:00 BP 153/89 09/11/24 07:00 Pulse Ox 97 09/11/24 07:00 FiO2 Intake & Output 09/10/24 09/11/24 09/11/24 18:59 06:59 18:59 Intake Total 118 Balance 118 Intake: Oral 118 Other: Voiding Method Toilet # Voids 2 3 - Exam GENERAL DESCRIPTION: An elderly male lying in bed in no distress RESPIRATORY SYSTEM: Unlabored breathing , decreased breath sounds at bases HEART: S1 S2 regular rate and rhythm , ABDOMEN: Soft , no tenderness, left groin and scrotal area erythema has decreased EXTREMITIES: No edema feet - Labs CBC & Chem 7: 09/11/24 05:25 09/11/24 05:25 Labs: Abnormal Lab Results - Last 24 Hours (Table) 09/10/24 09/10/24 09/10/24 Range/Units 12:07 17:31 20:31 RBC (4.40-5.60) X 10*6/uL MCV (80.0-97.0) FL MCH (27.0-32.0) pg Eosinophils # (0.04-0.35) X 10*3/uL Carbon Dioxide (21.6-31.8) mmol/L Anion Gap (4.00-12.00) mmol/L Glucose (70-110) mg/dL POC Glucose (mg/dL) 157 H 157 H 214 H (70-110) mg/dL 09/11/24 09/11/24 09/11/24 Range/Units 05:25 05:25 05:41 RBC 4.39 L (4.40-5.60) X 10*6/uL MCV 99.3 H (80.0-97.0) FL MCH 32.3 H (27.0-32.0) pg Eosinophils # 0.44 H (0.04-0.35) X 10*3/uL Carbon Dioxide 19.9 L (21.6-31.8) mmol/L Anion Gap 12.10 H (4.00-12.00) mmol/L Glucose 125 H (70-110) mg/dL POC Glucose (mg/dL) 120 H (70-110) mg/dL Assessment and Plan (1) Cellulitis of left groin Status: Acute Code(s): L03.314 - CELLULITIS OF GROIN SNOMED Code(s): 66980071 (2) Cellulitis of scrotum Status: Acute Code(s): N49.2 - INFLAMMATORY DISORDERS OF SCROTUM SNOMED Code(s): 29970125 (3) UTI (urinary tract infection) Status: Acute Code(s): N39.0 - URINARY TRACT INFECTION, SITE NOT SPECIFIED SNOMED Code(s): 28135532 Plan: 1patient presented hospital acute pain to the left groin area with evidence of swelling as well as redness concerning for cellulitis likely from gram-positive skin zofia, gram-negative infection not entirely excluded, patient did have CT as well as ultrasound did not mention any abscess 2significant abnormality of the bladder on the CT along with positive UA and urinary symptom difficulty urination and some burning concerning for UTI likely from UTI gram-negative pathogen, urine is growing group B strep and Leslie 3patient is afebrile and the patient white count has normalized, plan is to finish therapy with oral Ceftin and Diflucan on discharge and close outpatient follow-up Son at the bedside question concern answered Dictation was produced using [employer] dictation software. please excuse any grammatical, word or spelling errors. Time with Patient: Less than 30
== END 2024-09-11 14:18 | disposition home health service (06) | DRG 872 ==
LOC: EC 09:36 → 6NMEDSUR 13:31 → OBSVTOIN 13:32 → 1SOBS 14:31 → 6NMEDSUR 16:20
PROVIDERS: ADMIT Family Medicine; ATTEND Family Medicine
DX: A41.9 Sepsis, unspecified organism (principal); K56.7 Ileus, unspecified; J44.9 Chronic obstructive pulmonary disease, unspecified; E11.9 Type 2 diabetes mellitus without complications; I10 Essential (primary) hypertension; N39.0 Urinary tract infection, site not specified; L03.314 Cellulitis of groin; Z79.4 Long term (current) use of insulin; B95.1 Streptococcus, group B, as the cause of diseases classified elsewhere; N49.2 Inflammatory disorders of scrotum; K40.90 Unilateral inguinal hernia, without obstruction or gangrene, not specified as recurrent; E78.5 Hyperlipidemia, unspecified; R31.9 Hematuria, unspecified; N43.3 Hydrocele, unspecified; Z88.2 Allergy status to sulfonamides; Z87.891 Personal history of nicotine dependence; Z79.899 Other long term (current) drug therapy; Z85.51 Personal history of malignant neoplasm of bladder; Z79.01 Long term (current) use of anticoagulants; Z79.84 Long term (current) use of oral hypoglycemic drugs
CPT/HCPCS: 36415; 71045; 74021; 74177; 76870; 80048; 80053; 81001; 83605; 83690; 83880; 85025; 85610; 85730; 87040; 87086; 93975; 96365; 96366; 96367; 99285

== ENCOUNTER → 2024-12-14 | Outpatient (CLI) | payer MEDICARE ==
--- NOTE | 2024-12-14 09:46 | US ---
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 This may have a septation. Bladder: limited due to bladder not distended. Wall appears thickened. Hypoechoic material seen in po sterior bladder, possibly part of prostate. Bilateral Jets seen: No IMPRESSION: 1. Superior pole left renal complex cyst. Not well visualized by CT, monitoring with ultrasound recom mended 2. Some urinary bladder wall thickening may be present. This could be related to incomplete distentio n. [facility], , 12/14/2024 9:44 AM
== END | disposition home or self-care (01) ==
LOC: RADUSWWP 08:26
PROVIDERS: ATTEND Urology
DX: C67.6 Malignant neoplasm of ureteric orifice (principal); N28.1 Cyst of kidney, acquired; N32.89 Other specified disorders of bladder
CPT/HCPCS: 76770